=== PATIENT | female | born 1960 | race Caucasian/White ===

== ENCOUNTER 2018-02-13 11:01 | Inpatient (IN) | payer MEDICAID ==
[2018-02-13] MEDS ORDERED: Polyethylene Glycol 3350 Powder 17 GM Packet PO PRN (16:57)
[2018-02-13] MEDS ORDERED: oxyCODONE 5 MG Tab PO PRN (16:57)
[2018-02-13] MEDS ORDERED: Sodium Chloride 0.9% 10 ML Syringe FLUSH PRN (16:57)
[2018-02-13] MEDS ORDERED: Ondansetron 4 MG/2 ML SDV IV PRN (16:57)
[2018-02-13] MEDS ORDERED: Potassium Chloride 20 MEQ Tab.ER PO ONE (17:30)
[2018-02-13] MEDS ORDERED: Furosemide 20 MG/2 ML VIAL IVPUSH ONE (17:30)
[2018-02-13] MEDS ORDERED: Furosemide 40 MG/4 ML VIAL IVPUSH ONE (17:30)
[2018-02-13] MEDS ORDERED: Lactated Ringers 1,000 ML IV SCH (18:30)
--- NOTE | 2018-02-13 18:30 | PCM.HP ---
H&P History of Present Illness - General Date of Service: 02/13/18 Admit Problem/Dx: Source of Information: Patient, Old Records, Provider, RN Notes Reviewed History Limitations: Reports: No Limitations - History of Present Illness Initial Comments - Free Text/Narative: This patient is a 57-year-old woman who is admitted to observation status as a direct admission from the walk-in clinic, with symptoms of progressive weakness , increased abdominal girth, and poor urine output. She has not felt well over the past month, becoming progressively more weak and noticing increase in her abdominal girth. Over the last few days his had very poor urine output and went into the walk-in clinic earlier today for evaluation. Creatinine was noted to be mildly elevated from baseline and bladder scan showed a large amount of urine within the bladder. Douglas catheter was placed but only a small amount of urine returned, this was very dark in color. They were concerned that the catheter had plugged and it was then removed. She has had an elevated bilirubin level today at 4.4 which is mildly increased over the past few days. There is a past history of fatty liver and she reports daily alcohol use for many years. Reports that she is not consumed alcohol now over the past month. Ultrasound was done previously which showed evidence of fatty liver, question of possible thickening of the gallbladder wall. CT scan was obtained and showed evidence of fatty liver with no masses within the liver or evidence of obstruction. Laboratory studies have been obtained to evaluate her liver disease and include negative ceruloplasmin normal ferritin and iron levels in a.m. 1.07 negative hepatitis B and C. Most recent INR was mildly elevated at 1.3 and her albumin is in the range of 2.4. She denies recent fevers chills or sweats and has not had significant abdominal tenderness. - Related Data Allergies/Adverse Reactions: Allergies Allergy/AdvReac Type Severity Reaction Status Date / Time No Known Allergies Allergy Verified 02/04/18 09:38 Home Medications: Home Meds Polyethylene Glycol 3350 [Miralax] 17 gm PO DAILY PRN 02/13/18 [History] Spironolactone [Aldactone] 25 mg PO BID 02/13/18 [History] glipiZIDE [Glucotrol] 5 mg PO BID 02/13/18 [History] Past Medical History - Past Health History Medical/Surgical History: Denies Medical/Surgical History HEENT History: Reports: None Cardiovascular History: Reports: High Cholesterol, Hypertension Respiratory History: Reports: COPD, Sleep Apnea, SOB Gastrointestinal History: Reports: Chronic Constipation, Chronic Diarrhea Genitourinary History: Reports: Retention, Urinary, Urinary Incontinence Psychiatric History: Reports: Addiction, Anxiety, Depression, Panic Attack Endocrine/Metabolic History: Reports: Diabetes, Type II - Infectious Disease History Infectious Disease History: Reports: Chicken Pox, Mumps - Past Surgical History Head Surgeries/Procedures: Reports: None HEENT Surgical History: Reports: None Cardiovascular Surgical History: Reports: None GI Surgical History: Reports: None Female Surgical History: Reports: Section Endocrine Surgical History: Reports: None Oncologic Surgical History: Reports: None Social & Family History - Family History Family Medical History: Unobtainable - Tobacco Use Smoking Status *Q: Current Every Day Smoker Years of Tobacco use: 35 Packs/Tins Daily: 1 Used Tobacco, but Quit: No Second Hand Smoke Exposure: No - Caffeine Use Caffeine Use: Reports: None - Recreational Drug Use Recreational Drug Use: No H&P Review of Systems - Review of Systems: Review Of Systems: See Below General: Reports: Weakness, Decreased Appetite. Denies: Fever, Chills, Diaphoresis HEENT: Reports: No Symptoms Pulmonary: Reports: No Symptoms Cardiovascular: Reports: No Symptoms Gastrointestinal: Reports: Decreased Appetite, Distension. Denies: Abdominal Pain, Diarrhea, Difficulty Swallowing, Hematemesis, Hematochezia, Melena, Nausea , Vomiting Genitourinary: Reports: Other (Very low urine output) Musculoskeletal: Reports: No Symptoms Skin: Reports: No Symptoms Psychiatric: Reports: No Symptoms Neurological: Reports: No Symptoms Hematologic/Lymphatic: Reports: No Symptoms Immunologic: Reports: No Symptoms Exam - Exam Exam: See Below - Vital Signs Vital Signs: Last Vital Signs Temp 97.8 F 02/13/18 16:17 Pulse 89 02/13/18 16:17 Resp 16 02/13/18 16:17 BP 109/56 L 02/13/18 16:17 Pulse Ox 99 02/13/18 16:17 Weight: 233 lb 12.8 oz - Exam Quality Assessment: Urinary Catheter, DVT Prophylaxis HEENT: Conjunctiva Clear, Hearing Intact, Normal Nasal Septum, Posterior Pharynx Clear, Pupils Equal. No: Mucosa Moist & Mutual, Scleral Icterus Neck: Supple, Trachea Midline, +2 Carotid Pulse wo Bruit Lungs: Clear to Auscultation, Normal Respiratory Effort Cardiovascular: Regular Rate, Regular Rhythm, Normal S1, Normal S2 GI/Abdominal Exam: Soft, Non-Tender, No Organomegaly, No Distention Back Exam: Normal Inspection, Full Range of Motion, Vertebral Tenderness Extremities: Non-Tender, Pedal Edema Skin: Warm, Dry, Intact Neurological: Cranial Nerves Intact, Strength Equal Bilateral, Normal Speech, Normal Tone, Sensation Intact. No: Focal Deficit Neuro Extensive - Mental Status: Alert, Oriented x3, Normal Mood/Affect, Normal Cognition, Memory Intact *Q Meaningful Use (ADM) - VTE Risk Assess *Q Each Risk Factor Represents 1 Point: Age 41 - 59 years, Swollen Legs, Current, Obesity ( BMI > 25 kg/m2) Total Score 1 Point Risk Factors: 3 Each Risk Factor Represents 2 Points: None Total Score 2 Point Risk Factors: 0 Each Risk Factor Represents 3 Points: None Total Score 3 Point Risk Factors: 0 Each Risk Factor Represents 5 Points: None Total Score 5 Point Risk Factors: 0 Venous Thromboembolism Risk Factor Score *Q: 3 Problem List Initiated/Reviewed/Updated: Yes Orders Last 24hrs: Active Orders 24 hr Category Date Time Status Patient Status [ADT] Routine ADT 02/13/18 16:57 Active Ambulate [RC] QID Care 02/13/18 16:57 Active Height and Weight [RC] DAILY Care 02/13/18 16:57 Active Insert Urinary Catheter [OM.PC] Q24H Care 02/13/18 17:15 Ordered Intake and Output [RC] QSHIFT Care 02/13/18 16:57 Active Notify Provider Vital Signs [RC] ASDIRECTED Care 02/13/18 16:57 Active Oxygen Therapy [RC] PRN Care 02/13/18 16:57 Active Up With Assistance [RC] ASDIRECTED Care 02/13/18 16:57 Active Up to Chair [RC] QID Care 02/13/18 16:57 Active Urinary Catheter Assessment [RC] ASDIRECTED Care 02/13/18 17:03 Active VTE/DVT Education [RC] Per Unit Routine Care 02/13/18 16:57 Active Vital Signs [RC] Q4H Care 02/13/18 16:57 Active 2 Gram Sodium Diet [DIET] Diet 02/13/18 Dinner Active ACTIN (SMOOTH MUSCLE) ANTIBODY Routine Lab 02/14/18 05:00 Ordered CBC WITH AUTO DIFF [HEME] AM Lab 02/14/18 05:11 Ordered COMPREHENSIVE METABOLIC PN,CMP [CHEM] AM Lab 02/14/18 05:11 Ordered CULTURE URINE [RM] Stat Lab 02/13/18 16:57 Ordered INR,PT,PROTHROMBIN TIME [COAG] AM Lab 02/14/18 05:11 Ordered MAGNESIUM [CHEM] AM Lab 02/14/18 05:11 Ordered UA W/MICROSCOPIC [URIN] Stat Lab 02/13/18 16:57 Ordered Docusate Sodium/Sennosides [Senna Plus] Med 02/13/18 16:57 Active 1 tab PO BID PRN Lactated Ringers @ 125 MLS/HR(1000ml) Med 02/14/18 00:30 Ordered Lactated Ringers [Ringers, Lactated] 1,000 ml IV ASDIRECTED Lactated Ringers [Ringers, Lactated] 1,000 ml Med 02/13/18 18:30 Ordered IV ASDIRECTED Magnesium Hydroxide [Milk of Magnesia] Med 02/13/18 16:57 Active 30 ml PO Q12H PRN Ondansetron [Zofran] Med 02/13/18 16:57 Active 4 mg IV Q4H PRN Polyethylene Glycol 3350 [MiraLAX] Med 02/13/18 16:57 Active 17 gm PO DAILY PRN Sodium Chloride 0.9% [Saline Flush] Med 02/13/18 16:57 Active 10 ml FLUSH ASDIRECTED PRN Spironolactone [Aldactone] Med 02/13/18 21:00 Active 25 mg PO TID oxyCODONE Med 02/13/18 16:57 Active 5 mg PO Q4H PRN Saline Lock Insert [OM.PC] Routine Oth 02/13/18 16:57 Ordered Resuscitation Status Routine Resus Stat 02/13/18 16:57 Ordered Medication Orders Lactated Ringer's (Ringers, Lactated) 1,000 mls @ 250 mls/hr IV ASDIRECTED JOSEPH Stop: 02/14/18 00:31 Lactated Ringer's (Ringers, Lactated) 1,000 mls @ 125 mls/hr IV ASDIRECTED JOSEPH Magnesium Hydroxide (Milk Of Magnesia) 30 ml PO Q12H PRN PRN Reason: Constipation Ondansetron HCl (Zofran) 4 mg IV Q4H PRN PRN Reason: Nausea/Vomiting Oxycodone HCl (Oxycodone) 5 mg PO Q4H PRN PRN Reason: Pain (moderate 4-6) Polyethylene Glycol (Miralax) 17 gm PO DAILY PRN PRN Reason: Constipation Senna/Docusate Sodium (Senna Plus) 1 tab PO BID PRN PRN Reason: Constipation Sodium Chloride (Saline Flush) 10 ml FLUSH ASDIRECTED PRN PRN Reason: Keep Vein Open Spironolactone (Aldactone) 25 mg PO TID JOSEPH Assessment/Plan Comment:: ASSESSMENT AND PLAN HEPATIC CIRRHOSIS-likely secondary to fatty liver and chronic alcohol use, associated with significant ascites. Outpatient evaluation is been negative for any evidence of obstruction and other studies to evaluate for causes of cirrhosis have been negative. -Anti-smooth muscle antibody -Consider paracentesis for further evaluation and treatment of large volume ascites -2 g sodium diet -Patient encouraged to avoid further alcohol use ACUTE KIDNEY INJURY-she may have a component of hepatorenal syndrome, poor urine output over the past few days. Bladder scan done at the clinic suggested large volume bladder with urinary retention. I think this was likely secondary to her ascitic fluid, Douglas catheter is been placed here with negligible output. -Reassess kidney function in a.m. -Closely monitor urine output -IV fluids for intravascular volume replacement MAINTENANCE ISSUES -DVT prophylaxis; Lovenox 40 mg subcutaneous daily -GI prophylaxis; not indicated -Douglas catheter; required to closely monitor urine output -Nutrition; 2 g sodium diet, consistent carb diet -Nicotine dependence; 14 mg nicotinic patch CODE STATUS-FULL CODE ADMISSION STATUS-this patient will be admitted to observation status, expect no more than a one night hospital stay for evaluation and management of problems as outlined above. DISPOSITION-anticipate discharge to home after the hospital stay. PRIMARY CARE PROVIDER-Dr. Tenorio
[2018-02-13] MEDS ORDERED: Nicotine Polacrilex 2 MG Gum CHEW PRN (18:37)
[2018-02-13] MEDS ORDERED: Glucose Gel 15 GM in 37.5 GM Tube PO PRN (18:37)
[2018-02-13] MEDS ORDERED: 50% Dextrose in Water 50 ML Syringe IV PRN (18:37)
[2018-02-13] MEDS: Nicotine 14 MG/24 Hr Patch TRDERM SCH (20:21)
[2018-02-13] MEDS: SPIRONOLACTONE 25 MG PO SCH (21:54)
[2018-02-13] MEDS: Melatonin 3 MG Tab PO SCH (21:54)
[2018-02-13] MEDS: Insulin Aspart 100 Units/ML 3 ML Pen SUBCUT SCH (21:55)
[2018-02-13] MEDS: Acetaminophen/HYDROcodone 325-5 MG Tab PO PRN (22:31)
[2018-02-14] MEDS: Lactated Ringers 1,000 ML IV SCH ×2 (01:49→08:49)
[2018-02-14] MEDS ORDERED: Lactated Ringers 500 ML IV SCH (02:30)
[2018-02-14] MEDS ORDERED: Potassium Chloride 100 ML ONE (05:57)
[2018-02-14] MEDS: Potassium Chloride 20 MEQ, Lidocaine 1% 2 ML in Sodium Chloride 0.9% 100 ML IV SCH ×2 (06:05→08:47)
--- NOTE | 2018-02-14 07:51 | PCM.SN ---
- Free Text/Narrative Note: time 02:30 am; call from [address] [place] [address]; concerns of low blood pressure and low urine output also request change of pain medication; oxycodone causes itchiness, would like hydrocodone instead. O: B/P 92/46 P71 , urine output <100ml since 2099 A: hypotension, low urine output, change pain medication P:-give 500ml fluid bolus now and recheck blood pressures -monitor urine output closely -D/C oxycodone -order Hydrocodone 5-325mg take 1-2 tab every 4 hr prn pain
[2018-02-14] MEDS: Insulin Aspart 100 Units/ML 3 ML Pen SUBCUT SCH ×4 (08:15→21:42)
[2018-02-14] MEDS: SPIRONOLACTONE 25 MG PO SCH ×3 (08:17→21:43)
[2018-02-14] MEDS: Nicotine 14 MG/24 Hr Patch TRDERM SCH (08:58)
[2018-02-14] MEDS: Acetaminophen/HYDROcodone 325-5 MG Tab PO PRN ×3 (08:58→21:55)
[2018-02-14] MEDS: Enoxaparin 40 MG/0.4 ML Syringe SUBCUT SCH (08:58)
[2018-02-14] MEDS: Magnesium Hydroxide 400 MG/5 ML Susp 30 ML Cup PO PRN (08:58)
[2018-02-14] MEDS: Magnesium Oxide 400 MG Tab PO SCH ×2 (08:59→21:43)
[2018-02-14] MEDS: Albumin 25% 50 ML IV SCH ×5 (11:13→22:00)
[2018-02-14] MEDS ORDERED: Lactated Ringers 1,000 ML IV SCH (12:00)
--- NOTE | 2018-02-14 12:11 | PCM.PN ---
- General Info Date of Service: 02/14/18 Subjective Update: This patient has remained afebrile and hemodynamically stable since admission yesterday afternoon. Urine output has been marginal despite IV fluids, albumin level this morning very low at 1.5. Renal function only slightly worse than on admission, she reports feeling very weak and tired. Urinalysis showed evidence of possible underlying infection and she has been started on IV antibiotic therapy with Rocephin, urine culture is pending. - Review of Systems General: Reports: Weakness, Fatigue. Denies: Fever, Chills Pulmonary: Reports: No Symptoms Cardiovascular: Reports: No Symptoms Gastrointestinal: Reports: Other (Abdominal distention). Denies: Abdominal Pain , Diarrhea, Difficulty Swallowing, Nausea, Vomiting Genitourinary: Reports: No Symptoms - Patient Data Vitals - Most Recent: Last Vital Signs Temp 96.6 F 02/14/18 07:47 Pulse 76 02/14/18 07:47 Resp 26 H 02/14/18 07:47 BP 117/71 02/14/18 07:47 Pulse Ox 96 02/14/18 07:47 Weight - Most Recent: 237 lb 12.79 oz I&O - Last 24 Hours: Intake & Output 02/13/18 02/14/18 02/14/18 22:59 06:59 14:59 Intake Total 2182 Output Total 50 150 Balance -50 2032 Lab Results Last 24 Hours: Laboratory Results - last 24 hr 02/13/18 02/14/18 02/14/18 Range/Units 20:25 04:45 04:45 WBC 12.5 H (4.5-11.0) K/uL RBC 3.70 (3.30-5.50) M/uL Hgb 12.5 (12.0-15.0) g/dL Hct 37.5 (36.0-48.0) % MCV 101 H (80-98) fL MCH 34 H (27-31) pg MCHC 33 (32-36) % Plt Count 199 (150-400) K/uL Neut % (Auto) 66 (36-66) % Lymph % (Auto) 21 L (24-44) % Preston % (Auto) 9 H (2-6) % Eos % (Auto) 3 (2-4) % Baso % (Auto) 1 (0-1) % PT 14.2 H (9.5-12.0) sec INR 1.31 H (0.80-1.20) Sodium (140-148) mmol/L Potassium (3.6-5.2) mmol/L Chloride (100-108) mmol/L Carbon Dioxide (21-32) mmol/L Anion Gap (5.0-14.0) mmol/L BUN (7-18) mg/dL Creatinine (0.6-1.0) mg/dL Est Cr Clr Drug Dosing mL/min Estimated GFR (MDRD) (>60) Glucose (74-106) mg/dL Calcium (8.5-10.1) mg/dL Magnesium (1.8-2.4) mg/dL Total Bilirubin (0.2-1.0) mg/dL AST (15-37) U/L ALT (12-78) U/L Alkaline Phosphatase (46-116) U/L Total Protein (6.4-8.2) g/dL Albumin (3.4-5.0) g/dL Globulin (2.3-3.5) g/dL Albumin/Globulin Ratio (1.2-2.2) Urine Color [place] Urine Appearance Cloudy Urine pH 5.0 (4.5-8.0) Ur Specific [place] 1.020 (1.008-1.030) Urine Protein 30 H (NEGATIVE) mg/dL Urine Glucose (UA) Normal (NEGATIVE) mg/dL Urine Ketones Negative (NEGATIVE) mg/dL Urine Occult Blood Large (NEGATIVE) Urine Nitrite Negative (NEGATIVE) Urine Bilirubin Moderate (NEGATIVE) Urine Urobilinogen 8 (NORMAL) mg/dL Ur Leukocyte Esterase Moderate (NEGATIVE) Urine RBC 30-40 H (0-5) Urine WBC 20-30 H (0-5) Ur Epithelial Cells Moderate Amorphous Sediment Few Urine Bacteria Moderate Urine Mucus Many Urine Other 02/14/18 Range/Units 04:45 WBC (4.5-11.0) K/uL RBC (3.30-5.50) M/uL Hgb (12.0-15.0) g/dL Hct (36.0-48.0) % MCV (80-98) fL MCH (27-31) pg MCHC (32-36) % Plt Count (150-400) K/uL Neut % (Auto) (36-66) % Lymph % (Auto) (24-44) % Preston % (Auto) (2-6) % Eos % (Auto) (2-4) % Baso % (Auto) (0-1) % PT (9.5-12.0) sec INR (0.80-1.20) Sodium 138 L (140-148) mmol/L Potassium 2.6 L* (3.6-5.2) mmol/L Chloride 99 L (100-108) mmol/L Carbon Dioxide 34 H (21-32) mmol/L Anion Gap 7.6 (5.0-14.0) mmol/L BUN 20 H (7-18) mg/dL Creatinine 1.2 H (0.6-1.0) mg/dL Est Cr Clr Drug Dosing 44.13 mL/min Estimated GFR (MDRD) 46 L (>60) Glucose 92 (74-106) mg/dL Calcium 7.4 L (8.5-10.1) mg/dL Magnesium 1.7 L (1.8-2.4) mg/dL Total Bilirubin 2.0 H (0.2-1.0) mg/dL AST 62 H (15-37) U/L ALT 17 (12-78) U/L Alkaline Phosphatase 169 H (46-116) U/L Total Protein 5.3 L (6.4-8.2) g/dL Albumin 1.5 L (3.4-5.0) g/dL Globulin 3.8 H (2.3-3.5) g/dL Albumin/Globulin Ratio 0.4 L (1.2-2.2) Urine Color Urine Appearance Urine pH (4.5-8.0) Ur Specific [place] (1.008-1.030) Urine Protein (NEGATIVE) mg/dL Urine Glucose (UA) (NEGATIVE) mg/dL Urine Ketones (NEGATIVE) mg/dL Urine Occult Blood (NEGATIVE) Urine Nitrite (NEGATIVE) Urine Bilirubin (NEGATIVE) Urine Urobilinogen (NORMAL) mg/dL Ur Leukocyte Esterase (NEGATIVE) Urine RBC (0-5) Urine WBC (0-5) Ur Epithelial Cells Amorphous Sediment Urine Bacteria Urine Mucus Urine Other Med Orders - Current: Current Medications Hydrocodone Bitart/Acetaminophen ([place] 325-5 Mg) 1 - 2 tab PO Q4H PRN PRN Reason: Pain Last Admin: 02/14/18 08:58 Dose: 1 tab Dextrose (Glutose 15) 15 gm PO ONETIME PRN PRN Reason: Hypoglycemia Dextrose/Water (Dextrose 50% In Water) 50 ml IV ONETIME PRN PRN Reason: Hypoglycemia Enoxaparin Sodium (Lovenox) 40 mg SUBCUT DAILY [facility] Last Admin: 02/14/18 08:58 Dose: 40 mg Ceftriaxone Sodium 1 gm/ (Sodium Chloride) 50 mls @ 100 mls/hr IV Q24H [facility] Albumin Human (Flexbumin 25%) 50 mls @ 25 mls/hr IV Q6H [facility] Last Admin: 02/14/18 11:13 Dose: 25 mls/hr Albumin Human (Flexbumin 25%) 50 mls @ 25 mls/hr IV Q6H [facility] Lactated Ringer's (Ringers, Lactated) 1,000 mls @ 50 mls/hr IV ASDIRECTED [facility]1983 Insulin Aspart (Novolog) 0 unit SUBCUT QIDACANDBED [facility], [facility]; Protocol Last Admin: 02/14/18 11:59 Dose: Not Given Magnesium Hydroxide (Milk Of Magnesia) 30 ml PO Q12H PRN PRN Reason: Constipation Last Admin: 02/14/18 08:58 Dose: 30 ml Magnesium Oxide (Magnesium Oxide) 400 mg PO BID [facility] Last Admin: 02/14/18 08:59 Dose: 400 mg Melatonin (Melatonin) 9 mg PO BEDTIME [facility] Last Admin: 02/13/18 21:54 Dose: 9 mg Nicotine (Habitrol) 14 mg TRDERM DAILY [facility] Last Admin: 02/14/18 08:58 Dose: Not Given Nicotine Polacrilex (Nicorelief) 2 mg CHEW Q1H PRN PRN Reason: Other Ondansetron HCl (Zofran) 4 mg IV Q4H PRN PRN Reason: Nausea/Vomiting Last Admin: 02/14/18 09:48 Dose: 4 mg Polyethylene Glycol (Miralax) 17 gm PO DAILY PRN PRN Reason: Constipation Potassium Chloride (Klor-Con M20) 40 meq PO ONETIME ONE Stop: 02/14/18 11:58 Potassium Chloride (Klor-Con M20) 40 meq PO ONETIME ONE Stop: 02/14/18 17:01 Senna/Docusate Sodium (Senna Plus) 1 tab PO BID PRN PRN Reason: Constipation Last Admin: 02/13/18 21:54 Dose: 1 tab Sodium Chloride (Saline Flush) 10 ml FLUSH ASDIRECTED PRN PRN Reason: Keep Vein Open Spironolactone (Aldactone) 25 mg PO TID [facility] Last Admin: 02/14/18 08:17 Dose: 25 mg Discontinued Medications Furosemide (Lasix) 20 mg IVPUSH NOW ONE Stop: 02/13/18 17:31 Last Admin: 02/13/18 18:36 Dose: Not Given Furosemide (Lasix) 20 mg IVPUSH NOW ONE Stop: 02/13/18 17:31 Last Admin: 02/13/18 18:16 Dose: 20 mg Lactated Ringer's (Ringers, Lactated) 1,000 mls @ 250 mls/hr IV ASDIRECTED [facility] Stop: 02/14/18 00:31 Last Admin: 02/13/18 20:05 Dose: 175 mls/hr Lactated Ringer's (Ringers, Lactated) 1,000 mls @ 125 mls/hr IV ASDIRECTED [facility] Last Admin: 02/14/18 08:49 Dose: 125 mls/hr Lactated Ringer's (Ringers, Lactated) 500 mls @ 500 mls/hr IV .BOLUS [facility] Last Admin: 02/14/18 02:45 Dose: 200 mls/hr Potassium Chloride 20 meq/Lidocaine HCl 2 ml/ Sodium Chloride 112 mls @ 50 mls/ hr IV Q2H [facility] Stop: 02/14/18 09:59 Last Admin: 02/14/18 08:47 Dose: 50 mls/hr Potassium Chloride (Kcl 20 Meq In Water 100 Ml) Confirm Administered Dose 100 mls @ as directed .ROUTE .STK-MED ONE Stop: 02/14/18 05:58 Last Admin: 02/14/18 06:04 Dose: Not Given Oxycodone HCl (Oxycodone) 5 mg PO Q4H PRN PRN Reason: Pain (moderate 4-6) Potassium Chloride (Klor-Con M20) 40 meq PO ONETIME ONE Stop: 02/13/18 17:31 Last Admin: 02/13/18 18:16 Dose: 40 meq - Exam Quality Assessment: Urine Catheter, DVT Prophylaxis General: Alert, Oriented, Cooperative, Mild Distress Lungs: Clear to Auscultation, Normal Respiratory Effort Cardiovascular: Regular Rate, Regular Rhythm, No Murmurs GI/Abdominal Exam: Soft, Non-Tender, No Organomegaly, Distended. No: Guarding, Rigid, Rebound Extremities: Non-Tender, Pedal Edema Skin: Warm, Dry, Intact - Problem List Review Problem List Initiated/Reviewed/Updated: Yes - My Orders Last 24 Hours: My Active Orders 02/13/18 16:57 Ambulate [RC] QID Height and Weight [RC] DAILY Intake and Output [RC] QSHIFT Notify Provider Vital Signs [RC] ASDIRECTED Oxygen Therapy [RC] PRN Up With Assistance [RC] ASDIRECTED Up to Chair [RC] QID VTE/DVT Education [RC] Per Unit Routine Vital Signs [RC] Q4H Docusate Sodium/Sennosides [Senna Plus] 1 tab PO BID PRN Magnesium Hydroxide [Milk of Magnesia] 30 ml PO Q12H PRN Ondansetron [Zofran] 4 mg IV Q4H PRN Polyethylene Glycol 3350 [MiraLAX] 17 gm PO DAILY PRN Sodium Chloride 0.9% [Saline Flush] 10 ml FLUSH ASDIRECTED PRN Saline Lock Insert [OM.PC] Routine Resuscitation Status Routine 02/13/18 17:03 Urinary Catheter Assessment [RC] Q12H 02/13/18 17:15 Insert Urinary Catheter [OM.PC] Q24H 02/13/18 18:37 Blood Glucose Check, Bedside [RC] QIDACANDBED Communication Order [RC] STAT Diabetes Education [RC] Click to Edit Notify Provider [RC] PRN Dextrose 50% in Water 50 ml IV ONETIME PRN Dextrose [Glutose 15] 15 gm PO ONETIME PRN Nicotine Polacrilex [Nicorelief] 2 mg CHEW Q1H PRN 02/13/18 18:45 Nicotine [Habitrol] 14 mg TRDERM DAILY 02/13/18 20:00 Insulin Aspart [NovoLOG] See Protocol SUBCUT QIDACANDBED 02/13/18 20:25 CULTURE URINE [RM] Stat UA W/MICROSCOPIC [URIN] Stat 02/13/18 21:00 Spironolactone [Aldactone] 25 mg PO TID 02/13/18 Dinner 2 Gram Sodium Diet [DIET] 02/14/18 04:45 ACTIN (SMOOTH MUSCLE) ANTIBODY Routine 02/14/18 08:30 Blood Glucose Check, Bedside [RC] ONETIME 02/14/18 09:00 Enoxaparin [Lovenox] 40 mg SUBCUT DAILY cefTRIAXone [Rocephin] 1 gm Sodium Chloride 0.9% [Normal Saline] 50 ml IV Q24H 02/14/18 11:00 US Guidance Paracentesis NC [US] Stat Albumin 25% [Flexbumin 25%] 50 ml IV Q6H 02/14/18 11:01 Patient Status [ADT] Routine Consult to Physician [CONS] Routine 02/14/18 11:05 Notify Provider Consults [RC] ASDIRECTED 02/14/18 11:57 Potassium Chloride [Klor-Con M20] 40 meq PO ONETIME ONE 02/14/18 12:00 Lactated Ringers [Ringers, Lactated] 1,000 ml IV ASDIRECTED 02/14/18 13:00 Albumin 25% [Flexbumin 25%] 50 ml IV Q6H 02/14/18 16:30 GLUCOSE POC LAB TO COLLECT [POC] QIDACANDBED 02/14/18 17:00 Potassium Chloride [Klor-Con M20] 40 meq PO ONETIME ONE 02/14/18 21:00 GLUCOSE POC LAB TO COLLECT [POC] QIDACANDBED 02/15/18 05:00 CBC WITH AUTO DIFF [HEME] Timed COMPREHENSIVE METABOLIC PN,CMP [CHEM] Timed 02/15/18 07:30 GLUCOSE POC LAB TO COLLECT [POC] QIDACANDBED 02/15/18 11:30 GLUCOSE POC LAB TO COLLECT [POC] QIDACANDBED 02/15/18 16:30 GLUCOSE POC LAB TO COLLECT [POC] QIDACANDBED 02/15/18 21:00 GLUCOSE POC LAB TO COLLECT [POC] QIDACANDBED 02/16/18 07:30 GLUCOSE POC LAB TO COLLECT [POC] QIDACANDBED 02/16/18 11:30 GLUCOSE POC LAB TO COLLECT [POC] QIDACANDBED 02/16/18 16:30 GLUCOSE POC LAB TO COLLECT [POC] QIDACANDBED 02/16/18 21:00 GLUCOSE POC LAB TO COLLECT [POC] QIDACANDBED 02/17/18 07:30 GLUCOSE POC LAB TO COLLECT [POC] QIDACANDBED 02/17/18 11:30 GLUCOSE POC LAB TO COLLECT [POC] QIDACANDBED 02/17/18 16:30 GLUCOSE POC LAB TO COLLECT [POC] QIDACANDBED 02/17/18 21:00 GLUCOSE POC LAB TO COLLECT [POC] QIDACANDBED 02/18/18 07:30 GLUCOSE POC LAB TO COLLECT [POC] QIDACANDBED 02/18/18 11:30 GLUCOSE POC LAB TO COLLECT [POC] QIDACANDBED 02/18/18 16:30 GLUCOSE POC LAB TO COLLECT [POC] QIDACANDBED - Plan Plan:: ASSESSMENT AND PLAN HEPATIC CIRRHOSIS-likely secondary to fatty liver and chronic alcohol use, associated with significant ascites. Outpatient evaluation is been negative for any evidence of obstruction and other studies to evaluate for causes of cirrhosis have been negative. -Anti-smooth muscle antibody -Consult Dr. Espinoza for paracentesis -Albumin IV 4 times daily -2 g sodium diet -Patient encouraged to avoid further alcohol use ACUTE KIDNEY INJURY-probable component of hepatorenal syndrome, poor urine output over the past few days. Bladder scan done at the clinic suggested large volume bladder with urinary retention. I think this was likely secondary to her ascitic fluid, Douglas catheter has been placed here with negligible output. -Reassess kidney function in a.m. -Closely monitor urine output -Decrease IV rate to 50 mL per hour PROBABLE URINARY TRACT INFECTION -Urine culture pending -Rocephin 1 g IV every 24 hours TYPE 2 DIABETES MELLITUS -Hold glipizide -4 times a day glucometers -Low-dose sliding scale NovoLog MAINTENANCE ISSUES -DVT prophylaxis; Lovenox 40 mg subcutaneous daily -GI prophylaxis; not indicated -Douglas catheter; required to closely monitor urine output -Nutrition; 2 g sodium diet, consistent carb diet -Nicotine dependence; 14 mg nicotinic patch CODE STATUS-FULL CODE ADMISSION STATUS-this patient will be admitted to observation status, expect no more than a one night hospital stay for evaluation and management of problems as outlined above. DISPOSITION-anticipate discharge to home after the hospital stay. PRIMARY CARE PROVIDER-Dr. Tenorio
[2018-02-14] MEDS ORDERED: Potassium Chloride 20 MEQ Tab.ER PO ONE ×2 (13:00→17:00)
[2018-02-14] MEDS: cefTRIAXone 1 GM in Sodium Chloride 0.9% 50 ML IV SCH (13:30)
[2018-02-14] MEDS ORDERED: Bacitracin Oint 1 GM U/D Packet TOP ONE (18:28)
[2018-02-14] MEDS: Melatonin 3 MG Tab PO SCH (21:43)
[2018-02-14] MEDS ORDERED: Bacitracin Oint 1 GM U/D Packet ONE (21:48)
[2018-02-15] MEDS: Albumin 25% 50 ML IV SCH ×5 (00:34→18:38)
[2018-02-15] MEDS: diphenhydrAMINE 25 MG Cap PO PRN ×2 (05:45→09:37)
[2018-02-15] MEDS: Insulin Aspart 100 Units/ML 3 ML Pen SUBCUT SCH ×4 (07:29→21:34)
--- NOTE | 2018-02-15 08:12 | PCM.SN ---
- Free Text/Narrative Note: 05:30 am call from [address] [place] [address], o: request for benadryl for pruritus a: pruritus p; order benadryl 25mg to 50 mg po every 4 hr prn itch.
--- NOTE | 2018-02-15 08:28 | OR ---
DATE OF PROCEDURE: 02/14/2018 PROCEDURE PERFORMED: Paracentesis. FINDINGS: 1 L of straw-colored fluid aspirated for cytology. COMPLICATIONS: None. METER SUPERVISOR: None. ANESTHESIA: MAC. INDICATIONS: A 57-year-old female with large amount of ascites fluid. At the request of the Hospitalist Service, 1 L straw-colored fluid was aspirated for cytological/culture purposes. RISKS: Risks, benefits, alternatives, and limitations including, but not limited to infection, bleeding, and perforation were explained to the patient and wished to proceed. PROCEDURE IN DETAIL: The patient was placed in supine position. Previously, area was marked with an ultrasound. The calos was created in the skin after anesthetizing with lidocaine. The sheath was introduced and then the needle was withdrawn. 1 L of fluid was returned for culture purposes. This was then closed with a [id number] stitch. Dressings were applied. The patient tolerated the procedure well. Luis Espinoza MD /[id number]
[2018-02-15] MEDS ORDERED: Potassium Chloride 20 MEQ in Premix Bag 1 BAG IV ONE (08:30)
[2018-02-15] MEDS ORDERED: Potassium Chloride 20 MEQ Tab.ER PO ONE (09:00)
[2018-02-15] MEDS: Enoxaparin 40 MG/0.4 ML Syringe SUBCUT SCH (09:13)
[2018-02-15] MEDS: Magnesium Oxide 400 MG Tab PO SCH ×2 (09:13→20:50)
[2018-02-15] MEDS: SPIRONOLACTONE 25 MG PO SCH (09:14)
[2018-02-15] MEDS: Nicotine 14 MG/24 Hr Patch TRDERM SCH (09:14)
[2018-02-15] MEDS: cefTRIAXone 1 GM in Sodium Chloride 0.9% 50 ML IV SCH (09:37)
[2018-02-15] MEDS ORDERED: Potassium Chloride 20 MEQ, Lidocaine 1% 2 ML in Sodium Chloride 0.9% 100 ML IV ONE (10:00)
[2018-02-15] MEDS ORDERED: Sodium Chloride 0.9% 1,000 ML IV SCH (11:15)
--- NOTE | 2018-02-15 13:21 | PCM.PN ---
- General Info Date of Service: 02/15/18 Subjective Update: This patient has remained stable over the past 24 hours although urine output has remained marginal at best. Energy level seems to be improved and her appetite is picking up as well, this morning is sitting up in the chair more conversant and interactive. Denies significant pain, evaluation from ascitic fluid showing no evidence of obvious infection. Gram-positive cocci noted in the urine but final ID and sensitivities are pending white blood cell count has improved and she has remained afebrile. Functional Status: Reports: Pain Controlled, Tolerating Diet - Review of Systems General: Reports: Weakness. Denies: Fever, Chills Pulmonary: Reports: No Symptoms Cardiovascular: Reports: No Symptoms Gastrointestinal: Reports: No Symptoms - Patient Data Vitals - Most Recent: Last Vital Signs Temp 97.0 F 02/15/18 07:44 Pulse 79 02/15/18 11:00 Resp 18 02/15/18 11:00 BP 103/57 L 02/15/18 11:00 Pulse Ox 91 L 02/15/18 11:00 Weight - Most Recent: 237 lb 12.79 oz I&O - Last 24 Hours: Intake & Output 02/14/18 02/15/18 02/15/18 22:59 06:59 14:59 Intake Total 590 860 Output Total 1110 175 95 Balance -520 -175 765 Lab Results Last 24 Hours: Laboratory Results - last 24 hr 02/14/18 02/14/18 02/14/18 Range/Units 13:00 18:50 18:50 WBC (4.5-11.0) K/uL RBC (3.30-5.50) M/uL Hgb (12.0-15.0) g/dL Hct (36.0-48.0) % MCV (80-98) fL MCH (27-31) pg MCHC (32-36) % Plt Count (150-400) K/uL Neut % (Auto) (36-66) % Lymph % (Auto) (24-44) % [place] % (Auto) (2-6) % Eos % (Auto) (2-4) % Baso % (Auto) (0-1) % Sodium (140-148) mmol/L Potassium 3.2 L (3.6-5.2) mmol/L Chloride (100-108) mmol/L Carbon Dioxide (21-32) mmol/L Anion Gap (5.0-14.0) mmol/L BUN (7-18) mg/dL Creatinine (0.6-1.0) mg/dL Est Cr Clr Drug Dosing mL/min Estimated GFR (MDRD) (>60) Glucose (74-106) mg/dL Calcium (8.5-10.1) mg/dL Total Bilirubin (0.2-1.0) mg/dL AST (15-37) U/L ALT (12-78) U/L Alkaline Phosphatase (46-116) U/L Total Protein (6.4-8.2) g/dL Albumin (3.4-5.0) g/dL Globulin (2.3-3.5) g/dL Albumin/Globulin Ratio (1.2-2.2) Fluid Type Peritoneal fluid Peritoneal fluid Fluid pH Fluid WBC 20 /ul Fluid RBC 80 /ul Fluid Diff Comment Histocyte looking ce Fluid Mononuclear Cell 90 % Fl Polymorphonucl Cell 10 % Fluid Total Protein 1.7 g/dL Fluid Amylase 10 U/L Fluid Lipase 57 U/L 02/14/18 02/15/18 02/15/18 Range/Units 18:50 04:45 04:45 WBC 9.8 (4.5-11.0) K/uL RBC 3.57 (3.30-5.50) M/uL Hgb 12.0 (12.0-15.0) g/dL Hct 36.8 (36.0-48.0) % MCV 103 H (80-98) fL MCH 34 H (27-31) pg MCHC 33 (32-36) % Plt Count 192 (150-400) K/uL Neut % (Auto) 65 (36-66) % Lymph % (Auto) 22 L (24-44) % [place] % (Auto) 10 H (2-6) % Eos % (Auto) 3 (2-4) % Baso % (Auto) 1 (0-1) % Sodium 140 (140-148) mmol/L Potassium 3.3 L (3.6-5.2) mmol/L Chloride 101 (100-108) mmol/L Carbon Dioxide 34 H (21-32) mmol/L Anion Gap 8.3 (5.0-14.0) mmol/L BUN 20 H (7-18) mg/dL Creatinine 1.2 H (0.6-1.0) mg/dL Est Cr Clr Drug Dosing 44.45 mL/min Estimated GFR (MDRD) 46 L (>60) Glucose 163 H (74-106) mg/dL Calcium 7.9 L (8.5-10.1) mg/dL Total Bilirubin 2.0 H (0.2-1.0) mg/dL AST 47 H (15-37) U/L ALT 15 (12-78) U/L Alkaline Phosphatase 147 H (46-116) U/L Total Protein 5.8 L (6.4-8.2) g/dL Albumin 2.6 L (3.4-5.0) g/dL Globulin 3.2 (2.3-3.5) g/dL Albumin/Globulin Ratio 0.8 L (1.2-2.2) Fluid Type Peritoneal fluid Fluid pH 8 Fluid WBC /ul Fluid RBC /ul Fluid Diff Comment Fluid Mononuclear Cell % Fl Polymorphonucl Cell % Fluid Total Protein g/dL Fluid Amylase U/L Fluid Lipase U/L Daljit Results Last 24 Hours: Microbiology 02/13/18 20:25 Urine Culture - Preliminary Urine, Catheterized 02/14/18 18:50 Gram Stain - Final Paracentesis Fluid Med Orders - Current: Current Medications Hydrocodone Bitart/Acetaminophen (Range 325-5 Mg) 1 - 2 tab PO Q4H PRN PRN Reason: Pain Last Admin: 02/14/18 21:55 Dose: 2 tab Dextrose (Glutose 15) 15 gm PO ONETIME PRN PRN Reason: Hypoglycemia Dextrose/Water (Dextrose 50% In Water) 50 ml IV ONETIME PRN PRN Reason: Hypoglycemia Diphenhydramine HCl (Benadryl) 25 - 50 mg PO Q4H PRN PRN Reason: Itching Last Admin: 02/15/18 09:37 Dose: 50 mg Enoxaparin Sodium (Lovenox) 40 mg SUBCUT DAILY [facility] TO [facility] Last Admin: 02/15/18 09:13 Dose: 40 mg Ceftriaxone Sodium 1 gm/ (Sodium Chloride) 50 mls @ 100 mls/hr IV Q24H [facility] Last Admin: 02/15/18 09:37 Dose: 100 mls/hr Albumin Human (Flexbumin 25%) 50 mls @ 12.5 mls/hr IV Q6H [facility] Last Admin: 02/15/18 07:28 Dose: 25 mls/hr Insulin Aspart (Novolog) 0 unit SUBCUT QIDACANDBED [facility] TO [facility]; Protocol Last Admin: 02/15/18 07:29 Dose: Not Given Magnesium Hydroxide (Milk Of Magnesia) 30 ml PO Q12H PRN PRN Reason: Constipation Last Admin: 02/14/18 08:58 Dose: 30 ml Magnesium Oxide (Magnesium Oxide) 400 mg PO BID [facility] Last Admin: 02/15/18 09:13 Dose: 400 mg Melatonin (Melatonin) 9 mg PO BEDTIME [facility] Last Admin: 02/14/18 21:43 Dose: 9 mg Nicotine (Habitrol) 14 mg TRDERM DAILY [facility] Last Admin: 02/15/18 09:14 Dose: 14 mg Nicotine Polacrilex (Nicorelief) 2 mg CHEW Q1H PRN PRN Reason: Other Ondansetron HCl (Zofran) 4 mg IV Q4H PRN PRN Reason: Nausea/Vomiting Last Admin: 02/14/18 09:48 Dose: 4 mg Polyethylene Glycol (Miralax) 17 gm PO DAILY PRN PRN Reason: Constipation Senna/Docusate Sodium (Senna Plus) 1 tab PO BID PRN PRN Reason: Constipation Last Admin: 02/13/18 21:54 Dose: 1 tab Sodium Chloride (Saline Flush) 10 ml FLUSH ASDIRECTED PRN PRN Reason: Keep Vein Open Spironolactone (Aldactone) 25 mg PO TID [facility] TO [facility] Discontinued Medications Bacitracin (Bacitracin Oint 1 Gm) 1 dose TOP ONETIME ONE Stop: 02/14/18 18:29 Last Admin: 02/14/18 21:50 Dose: 1 dose Bacitracin (Bacitracin Oint 1 Gm) Confirm Administered Dose 1 dose .ROUTE .STK- MED ONE Stop: 02/14/18 21:49 Last Admin: 02/14/18 21:51 Dose: Not Given Furosemide (Lasix) 20 mg IVPUSH NOW ONE Stop: 02/13/18 17:31 Last Admin: 02/13/18 18:36 Dose: Not Given Furosemide (Lasix) 20 mg IVPUSH NOW ONE Stop: 02/13/18 17:31 Last Admin: 02/13/18 18:16 Dose: 20 mg Lactated Ringer's (Ringers, Lactated) 1,000 mls @ 250 mls/hr IV ASDIRECTED [facility] Stop: 02/14/18 00:31 Last Admin: 02/13/18 20:05 Dose: 175 mls/hr Lactated Ringer's (Ringers, Lactated) 1,000 mls @ 125 mls/hr IV ASDIRECTED [facility] Last Admin: 02/14/18 08:49 Dose: 125 mls/hr Lactated Ringer's (Ringers, Lactated) 500 mls @ 500 mls/hr IV .BOLUS [facility] Last Admin: 02/14/18 02:45 Dose: 200 mls/hr Potassium Chloride 20 meq/Lidocaine HCl 2 ml/ Sodium Chloride 112 mls @ 50 mls/ hr IV Q2H [facility] Stop: 02/14/18 09:59 Last Admin: 02/14/18 08:47 Dose: 50 mls/hr Potassium Chloride (Kcl 20 Meq In Water 100 Ml) Confirm Administered Dose 100 mls @ as directed .ROUTE .STK-MED ONE Stop: 02/14/18 05:58 Last Admin: 02/14/18 06:04 Dose: Not Given Albumin Human (Flexbumin 25%) 50 mls @ 25 mls/hr IV Q6H [facility] Last Admin: 02/15/18 04:46 Dose: 25 mls/hr Lactated Ringer's (Ringers, Lactated) 1,000 mls @ 50 mls/hr IV ASDIRECTED [facility] TO [facility] Potassium Chloride 20 meq/Lidocaine HCl 2 ml/ Sodium Chloride 112 mls @ 56 mls/ hr IV ONETIME ONE Stop: 02/15/18 11:59 Last Admin: 02/15/18 11:08 Dose: 56 mls/hr Sodium Chloride (Normal Saline) 1,000 mls @ 50 mls/hr IV ASDIRECTED [facility] Last Admin: 02/15/18 11:13 Dose: 50 mls/hr Oxycodone HCl (Oxycodone) 5 mg PO Q4H PRN PRN Reason: Pain (moderate 4-6) Potassium Chloride (Klor-Con M20) 40 meq PO ONETIME ONE Stop: 02/13/18 17:31 Last Admin: 02/13/18 18:16 Dose: 40 meq Potassium Chloride (Klor-Con M20) 40 meq PO ONETIME ONE Stop: 02/14/18 13:01 Last Admin: 02/14/18 12:32 Dose: 40 meq Potassium Chloride (Klor-Con M20) 40 meq PO ONETIME ONE Stop: 02/14/18 17:01 Last Admin: 02/14/18 16:50 Dose: 40 meq Potassium Chloride (Klor-Con M20) 40 meq PO ONETIME ONE Stop: 02/15/18 09:01 Last Admin: 02/15/18 09:36 Dose: 40 meq Spironolactone (Aldactone) 25 mg PO TID [facility]END[facility] TO [facility] Last Admin: 02/15/18 09:14 Dose: 25 mg - Exam Quality Assessment: DVT Prophylaxis General: Alert, Oriented, Cooperative, No Acute Distress Lungs: Clear to Auscultation, Normal Respiratory Effort Cardiovascular: Regular Rate, Regular Rhythm, No Murmurs GI/Abdominal Exam: Soft, Non-Tender, No Organomegaly, Distended. No: Guarding, Rigid, Rebound Extremities: Non-Tender, Pedal Edema Skin: Warm, Dry, Intact - Problem List Review Problem List Initiated/Reviewed/Updated: Yes - My Orders Last 24 Hours: My Active Orders 02/14/18 13:00 Albumin 25% [Flexbumin 25%] 50 ml IV Q6H 02/14/18 15:55 MITOCHONDRIAL (M2) ANTIBODY Routine 02/15/18 13:17 Convert IV to Saline Lock [OM.PC] Routine 02/15/18 14:00 Spironolactone [Aldactone] 25 mg PO TID 02/15/18 16:30 GLUCOSE POC LAB TO COLLECT [POC] QIDACANDBED 02/15/18 21:00 GLUCOSE POC LAB TO COLLECT [POC] QIDACANDBED 02/16/18 05:00 CBC WITH AUTO DIFF [HEME] Timed COMPREHENSIVE METABOLIC PN,CMP [CHEM] Timed MAGNESIUM [CHEM] Timed 02/16/18 07:30 GLUCOSE POC LAB TO COLLECT [POC] QIDACANDBED 02/16/18 11:30 GLUCOSE POC LAB TO COLLECT [POC] QIDACANDBED 02/16/18 16:30 GLUCOSE POC LAB TO COLLECT [POC] QIDACANDBED 02/16/18 21:00 GLUCOSE POC LAB TO COLLECT [POC] QIDACANDBED 02/17/18 07:30 GLUCOSE POC LAB TO COLLECT [POC] QIDACANDBED 02/17/18 11:30 GLUCOSE POC LAB TO COLLECT [POC] QIDACANDBED 02/17/18 16:30 GLUCOSE POC LAB TO COLLECT [POC] QIDACANDBED 02/17/18 21:00 GLUCOSE POC LAB TO COLLECT [POC] QIDACANDBED 02/18/18 07:30 GLUCOSE POC LAB TO COLLECT [POC] QIDACANDBED 02/18/18 11:30 GLUCOSE POC LAB TO COLLECT [POC] QIDACANDBED 02/18/18 16:30 GLUCOSE POC LAB TO COLLECT [POC] QIDACANDBED - Plan Plan:: ASSESSMENT AND PLAN HEPATIC CIRRHOSIS-likely secondary to fatty liver and chronic alcohol use, associated with significant ascites. Outpatient evaluation is been negative for any evidence of obstruction and other studies to evaluate for causes of cirrhosis have been negative. -Anti-smooth muscle antibody and antimitochondrial antibodies pending -Consult Dr. Espinoza for paracentesis -Albumin IV 4 times daily -2 g sodium diet -Patient encouraged to avoid further alcohol use ACUTE KIDNEY INJURY-probable component of hepatorenal syndrome, poor urine output over the past few days. Bladder scan done at the clinic suggested large volume bladder with urinary retention. I think this was likely secondary to her ascitic fluid, Douglas catheter monitor urine output -Reassess kidney function in a.m. -Closely monitor urine output -Saline lock IV -Albumin as above URINARY TRACT INFECTION -Urine culture pending -Rocephin 1 g IV every 24 hours TYPE 2 DIABETES MELLITUS -Hold glipizide -4 times a day glucometers -Low-dose sliding scale NovoLog MAINTENANCE ISSUES -DVT prophylaxis; Lovenox 40 mg subcutaneous daily -GI prophylaxis; not indicated -Douglas catheter; required to closely monitor urine output -Nutrition; 2 g sodium diet, consistent carb diet -Nicotine dependence; 14 mg nicotinic patch CODE STATUS-FULL CODE ADMISSION STATUS-this patient will be admitted to observation status, expect no more than a one night hospital stay for evaluation and management of problems as outlined above. DISPOSITION-anticipate discharge to home after the hospital stay. PRIMARY CARE PROVIDER-Dr. Tenorio
[2018-02-15] MEDS: Spironolactone 25 MG Tab PO SCH ×2 (13:35→20:50)
[2018-02-15] MEDS: Magnesium Hydroxide 400 MG/5 ML Susp 30 ML Cup PO PRN (14:17)
[2018-02-15] MEDS: Midodrine 5 MG Tab PO SCH (16:07)
[2018-02-15] MEDS: Trolamine Salicylate/Aloe Vera 10% Crm 85 GM Tube TOP PRN (17:03)
[2018-02-15] MEDS: Melatonin 3 MG Tab PO SCH (20:50)
[2018-02-15] MEDS: Octreotide 100 MCG/ML SDV SUBCUT SCH (20:54)
[2018-02-16] MEDS: Albumin 25% 50 ML IV SCH ×4 (01:15→19:28)
[2018-02-16] MEDS: Midodrine 5 MG Tab PO SCH ×3 (01:15→15:28)
[2018-02-16] MEDS: Insulin Aspart 100 Units/ML 3 ML Pen SUBCUT SCH ×4 (08:10→21:22)
[2018-02-16] MEDS: Enoxaparin 40 MG/0.4 ML Syringe SUBCUT SCH (08:12)
[2018-02-16] MEDS: Nicotine 14 MG/24 Hr Patch TRDERM SCH (08:12)
[2018-02-16] MEDS: Spironolactone 25 MG Tab PO SCH ×3 (08:12→20:41)
[2018-02-16] MEDS: Magnesium Oxide 400 MG Tab PO SCH ×2 (08:13→20:41)
[2018-02-16] MEDS: Octreotide 100 MCG/ML SDV SUBCUT SCH ×3 (08:17→20:47)
[2018-02-16] MEDS: cefTRIAXone 1 GM in Sodium Chloride 0.9% 50 ML IV SCH (08:17)
--- NOTE | 2018-02-16 13:08 | PCM.PN ---
- General Info Date of Service: 02/16/18 Subjective Update: This patient has remained stable over the past 24 hours, urine output has improved with current management. She denies significant discomfort, appetite and energy level seem to be improving. Staph epidermidis is growing from the urine and found to be pansensitive. Antibiotic therapy is been changed to doxycycline IV. - Review of Systems General: Reports: Weakness. Denies: Fever, Chills Pulmonary: Reports: No Symptoms Cardiovascular: Reports: No Symptoms Gastrointestinal: Reports: No Symptoms Genitourinary: Reports: No Symptoms - Patient Data Vitals - Most Recent: Last Vital Signs Temp 98.2 F 02/16/18 07:00 Pulse 70 02/16/18 07:00 Resp 18 02/16/18 07:00 BP 113/61 02/16/18 07:00 Pulse Ox 92 L 02/16/18 07:00 Weight - Most Recent: 243 lb 12.8 oz I&O - Last 24 Hours: Intake & Output 02/15/18 02/16/18 02/16/18 22:59 06:59 14:59 Intake Total 50 698 270 Output Total 98 275 Balance -48 423 270 Lab Results Last 24 Hours: Laboratory Results - last 24 hr 02/16/18 02/16/18 Range/Units 05:50 05:50 WBC 9.2 (4.5-11.0) K/uL RBC 3.64 (3.30-5.50) M/uL Hgb 12.4 (12.0-15.0) g/dL Hct 37.4 (36.0-48.0) % MCV 103 H (80-98) fL MCH 34 H (27-31) pg MCHC 33 (32-36) % Plt Count 176 (150-400) K/uL Neut % (Auto) 64 (36-66) % Lymph % (Auto) 23 L (24-44) % [place] % (Auto) 9 H (2-6) % Eos % (Auto) 3 (2-4) % Baso % (Auto) 1 (0-1) % Sodium 140 (140-148) mmol/L Potassium 4.0 (3.6-5.2) mmol/L Chloride 103 (100-108) mmol/L Carbon Dioxide 31 (21-32) mmol/L Anion Gap 6.3 (5.0-14.0) mmol/L BUN 16 (7-18) mg/dL Creatinine 0.9 (0.6-1.0) mg/dL Est Cr Clr Drug Dosing 59.26 mL/min Estimated GFR (MDRD) > 60 (>60) Glucose 215 H (74-106) mg/dL Calcium 8.4 L (8.5-10.1) mg/dL Magnesium 2.2 (1.8-2.4) mg/dL Total Bilirubin 2.3 H (0.2-1.0) mg/dL AST 54 H (15-37) U/L ALT 17 (12-78) U/L Alkaline Phosphatase 132 H (46-116) U/L Total Protein 5.8 L (6.4-8.2) g/dL Albumin 2.7 L (3.4-5.0) g/dL Globulin 3.1 (2.3-3.5) g/dL Albumin/Globulin Ratio 0.9 L (1.2-2.2) Daljit Results Last 24 Hours: Microbiology 02/14/18 18:50 Gram Stain - Final Paracentesis Fluid Body Fluid Culture - Preliminary NO GROWTH AFTER 1 DAY 02/13/18 20:25 Urine Culture - Final Urine, Catheterized Staphylococcus Epidermidis Med Orders - Current: Current Medications Hydrocodone Bitart/Acetaminophen ([place] 325-5 Mg) 1 - 2 tab PO Q4H PRN PRN Reason: Pain Last Admin: 02/14/18 21:55 Dose: 2 tab Dextrose (Glutose 15) 15 gm PO ONETIME PRN PRN Reason: Hypoglycemia Dextrose/Water (Dextrose 50% In Water) 50 ml IV ONETIME PRN PRN Reason: Hypoglycemia Diphenhydramine HCl (Benadryl) 25 - 50 mg PO Q4H PRN PRN Reason: Itching Last Admin: 02/15/18 09:37 Dose: 50 mg Enoxaparin Sodium (Lovenox) 40 mg SUBCUT DAILY [facility] Last Admin: 02/16/18 08:12 Dose: 40 mg Albumin Human (Flexbumin 25%) 50 mls @ 25 mls/hr IV Q6H [facility] Last Admin: 02/16/18 08:10 Dose: 25 mls/hr Doxycycline Hyclate 100 mg/ (Sodium Chloride) 100 mls @ 100 mls/hr IV Q12H [facility] Insulin Aspart (Novolog) 0 unit SUBCUT QIDACANDBED [facility]; Protocol Last Admin: 02/16/18 08:10 Dose: 3 units Magnesium Hydroxide (Milk Of Magnesia) 30 ml PO Q12H PRN PRN Reason: Constipation Last Admin: 02/15/18 14:17 Dose: 30 ml Magnesium Oxide (Magnesium Oxide) 400 mg PO BID [facility] Last Admin: 02/16/18 08:13 Dose: 400 mg Melatonin (Melatonin) 9 mg PO BEDTIME [facility] Last Admin: 02/15/18 20:50 Dose: 9 mg Midodrine (Midodrine) 7.5 mg PO Q8H [facility] Last Admin: 02/16/18 08:11 Dose: 7.5 mg Nicotine (Habitrol) 14 mg TRDERM DAILY [facility] Last Admin: 02/16/18 08:12 Dose: 14 mg Nicotine Polacrilex (Nicorelief) 2 mg CHEW Q1H PRN PRN Reason: Other Octreotide Acetate (Sandostatin) 100 mcg SUBCUT TID [facility] Last Admin: 02/16/18 08:17 Dose: 100 mcg Ondansetron HCl (Zofran) 4 mg IV Q4H PRN PRN Reason: Nausea/Vomiting Last Admin: 02/14/18 09:48 Dose: 4 mg Polyethylene Glycol (Miralax) 17 gm PO DAILY PRN PRN Reason: Constipation Senna/Docusate Sodium (Senna Plus) 1 tab PO BID PRN PRN Reason: Constipation Last Admin: 02/13/18 21:54 Dose: 1 tab Sodium Chloride (Saline Flush) 10 ml FLUSH ASDIRECTED PRN PRN Reason: Keep Vein Open Spironolactone (Aldactone) 25 mg PO TID [facility] Last Admin: 02/16/18 08:12 Dose: 25 mg Trolamine Salicylate (Aspercreme 10%) 0 gm TOP Q1H PRN PRN Reason: Pain Last Admin: 02/15/18 17:03 Dose: 1 applic Discontinued Medications Bacitracin (Bacitracin Oint 1 Gm) 1 dose TOP ONETIME ONE Stop: 02/14/18 18:29 Last Admin: 02/14/18 21:50 Dose: 1 dose Bacitracin (Bacitracin Oint 1 Gm) Confirm Administered Dose 1 dose .ROUTE .STK- MED ONE Stop: 02/14/18 21:49 Last Admin: 02/14/18 21:51 Dose: Not Given Furosemide (Lasix) 20 mg IVPUSH NOW ONE Stop: 02/13/18 17:31 Last Admin: 02/13/18 18:36 Dose: Not Given Furosemide (Lasix) 20 mg IVPUSH NOW ONE Stop: 02/13/18 17:31 Last Admin: 02/13/18 18:16 Dose: 20 mg Lactated Ringer's (Ringers, Lactated) 1,000 mls @ 250 mls/hr IV ASDIRECTED [facility] Stop: 02/14/18 00:31 Last Admin: 02/13/18 20:05 Dose: 175 mls/hr Lactated Ringer's (Ringers, Lactated) 1,000 mls @ 125 mls/hr IV ASDIRECTED [facility] Last Admin: 02/14/18 08:49 Dose: 125 mls/hr Lactated Ringer's (Ringers, Lactated) 500 mls @ 500 mls/hr IV .BOLUS [facility] Last Admin: 02/14/18 02:45 Dose: 200 mls/hr Potassium Chloride 20 meq/Lidocaine HCl 2 ml/ Sodium Chloride 112 mls @ 50 mls/ hr IV Q2H [facility] Stop: 02/14/18 09:59 Last Admin: 02/14/18 08:47 Dose: 50 mls/hr Potassium Chloride (Kcl 20 Meq In Water 100 Ml) Confirm Administered Dose 100 mls @ as directed .ROUTE .STK-MED ONE Stop: 02/14/18 05:58 Last Admin: 02/14/18 06:04 Dose: Not Given Ceftriaxone Sodium 1 gm/ (Sodium Chloride) 50 mls @ 100 mls/hr IV Q24H [facility] Last Admin: 02/16/18 08:17 Dose: 100 mls/hr Albumin Human (Flexbumin 25%) 50 mls @ 25 mls/hr IV Q6H [facility] Last Admin: 02/15/18 04:46 Dose: 25 mls/hr Lactated Ringer's (Ringers, Lactated) 1,000 mls @ 50 mls/hr IV ASDIRECTED [facility] Potassium Chloride 20 meq/Lidocaine HCl 2 ml/ Sodium Chloride 112 mls @ 56 mls/ hr IV ONETIME ONE Stop: 02/15/18 11:59 Last Admin: 02/15/18 11:08 Dose: 56 mls/hr Sodium Chloride (Normal Saline) 1,000 mls @ 50 mls/hr IV ASDIRECTED [facility] Last Admin: 02/15/18 11:13 Dose: 50 mls/hr Oxycodone HCl (Oxycodone) 5 mg PO Q4H PRN PRN Reason: Pain (moderate 4-6) Potassium Chloride (Klor-Con M20) 40 meq PO ONETIME ONE Stop: 02/13/18 17:31 Last Admin: 02/13/18 18:16 Dose: 40 meq Potassium Chloride (Klor-Con M20) 40 meq PO ONETIME ONE Stop: 02/14/18 13:01 Last Admin: 02/14/18 12:32 Dose: 40 meq Potassium Chloride (Klor-Con M20) 40 meq PO ONETIME ONE Stop: 02/14/18 17:01 Last Admin: 02/14/18 16:50 Dose: 40 meq Potassium Chloride (Klor-Con M20) 40 meq PO ONETIME ONE Stop: 02/15/18 09:01 Last Admin: 02/15/18 09:36 Dose: 40 meq Spironolactone (Aldactone) 25 mg PO TID [facility] Last Admin: 02/15/18 09:14 Dose: 25 mg - Exam Quality Assessment: Urine Catheter, DVT Prophylaxis General: Alert, Oriented, Cooperative, Mild Distress Lungs: Clear to Auscultation, Normal Respiratory Effort Cardiovascular: Regular Rate, Regular Rhythm, No Murmurs GI/Abdominal Exam: Soft, Non-Tender, No Organomegaly, Distended Extremities: Non-Tender, Pedal Edema Skin: Warm, Dry, Intact - Problem List Review Problem List Initiated/Reviewed/Updated: Yes - My Orders Last 24 Hours: My Active Orders 02/15/18 13:17 Convert IV to Saline Lock [OM.PC] Routine 02/15/18 14:00 Spironolactone [Aldactone] 25 mg PO TID 02/15/18 16:00 Midodrine 7.5 mg PO Q8H 02/15/18 16:36 Trolamine Salicylate/Aloe Vera [Aspercreme 10%] 0 gm TOP Q1H PRN 02/15/18 21:00 Octreotide [SandoSTATIN] 100 mcg SUBCUT TID 02/16/18 09:00 Doxycycline [Vibramycin] 100 mg Sodium Chloride 0.9% [Normal Saline] 100 ml IV Q12H 02/16/18 16:30 GLUCOSE POC LAB TO COLLECT [POC] QIDACANDBED 02/16/18 21:00 GLUCOSE POC LAB TO COLLECT [POC] QIDACANDBED 02/17/18 05:00 CBC WITH AUTO DIFF [HEME] Timed COMPREHENSIVE METABOLIC PN,CMP [CHEM] Timed 02/17/18 07:30 GLUCOSE POC LAB TO COLLECT [POC] QIDACANDBED 02/17/18 11:30 GLUCOSE POC LAB TO COLLECT [POC] QIDACANDBED 02/17/18 16:30 GLUCOSE POC LAB TO COLLECT [POC] QIDACANDBED 02/17/18 21:00 GLUCOSE POC LAB TO COLLECT [POC] QIDACANDBED 02/18/18 07:30 GLUCOSE POC LAB TO COLLECT [POC] QIDACANDBED 02/18/18 11:30 GLUCOSE POC LAB TO COLLECT [POC] QIDACANDBED 02/18/18 16:30 GLUCOSE POC LAB TO COLLECT [POC] QIDACANDBED - Plan Plan:: ASSESSMENT AND PLAN HEPATIC CIRRHOSIS-likely secondary to fatty liver and chronic alcohol use, associated with significant ascites. Outpatient evaluation is been negative for any evidence of obstruction and other studies to evaluate for causes of cirrhosis have been negative. -Anti-smooth muscle antibody and antimitochondrial antibodies pending -Consult Dr. Espinoza for paracentesis -Albumin IV 4 times daily -Octreotide and Midodrine on as ordered -2 g sodium diet -Patient encouraged to avoid further alcohol use ACUTE KIDNEY INJURY-probable component of hepatorenal syndrome, urine output has improved with current management - Douglas catheter monitor urine output -Reassess kidney function in a.m. -Closely monitor urine output -Saline lock IV -Medical therapy as above URINARY TRACT INFECTION-urine culture growing staph epidermidis -Urine culture pending -Discontinue Rocephin -Doxycycline 100 mg IV every 12 hours TYPE 2 DIABETES MELLITUS -Hold glipizide -4 times a day glucometers -Low-dose sliding scale NovoLog MAINTENANCE ISSUES -DVT prophylaxis; Lovenox 40 mg subcutaneous daily -GI prophylaxis; not indicated -Douglas catheter; required to closely monitor urine output -Nutrition; 2 g sodium diet, consistent carb diet -Nicotine dependence; 14 mg nicotinic patch CODE STATUS-FULL CODE ADMISSION STATUS-this patient will be admitted to observation status, expect no more than a one night hospital stay for evaluation and management of problems as outlined above. DISPOSITION-anticipate discharge to home after the hospital stay. PRIMARY CARE PROVIDER-Dr. Tenorio
[2018-02-16] MEDS: Doxycycline 100 MG in Sodium Chloride 0.9% 100 ML IV SCH ×2 (13:38→20:48)
[2018-02-16] MEDS: Trolamine Salicylate/Aloe Vera 10% Crm 85 GM Tube TOP PRN ×2 (14:46→20:35)
[2018-02-16] MEDS: Melatonin 3 MG Tab PO SCH (20:41)
[2018-02-17] MEDS: Midodrine 5 MG Tab PO SCH ×3 (01:19→15:20)
[2018-02-17] MEDS: Albumin 25% 50 ML IV SCH ×4 (01:20→19:40)
[2018-02-17] MEDS: Spironolactone 25 MG Tab PO SCH ×3 (08:20→20:39)
[2018-02-17] MEDS: Nicotine 14 MG/24 Hr Patch TRDERM SCH (08:20)
[2018-02-17] MEDS: Enoxaparin 40 MG/0.4 ML Syringe SUBCUT SCH (08:20)
[2018-02-17] MEDS: Insulin Aspart 100 Units/ML 3 ML Pen SUBCUT SCH ×4 (08:26→21:38)
[2018-02-17] MEDS: Octreotide 100 MCG/ML SDV SUBCUT SCH (09:48)
[2018-02-17] MEDS: Acetaminophen/HYDROcodone 325-5 MG Tab PO PRN ×2 (09:48→21:37)
[2018-02-17] MEDS: Magnesium Oxide 400 MG Tab PO SCH ×2 (09:48→20:40)
[2018-02-17] MEDS: Doxycycline 100 MG in Sodium Chloride 0.9% 100 ML IV SCH (10:17)
[2018-02-17] MEDS ORDERED: Bacitracin Oint 1 GM U/D Packet TOP ONE (12:45)
--- NOTE | 2018-02-17 13:56 | PCM.PN ---
- General Info Date of Service: 02/17/18 Subjective Update: This patient has remained stable since yesterday, renal function has improved with current management although urine output has remained relatively low. Large volume paracentesis performed this afternoon by Dr. Espinoza with approximately 6 L of ascitic fluid removed. Appetite remains somewhat poor she is encouraged to try and increase oral intake as well as activity. Functional Status: Reports: Pain Controlled, Tolerating Diet, Urinating - Review of Systems General: Reports: Weakness. Denies: Fever, Chills Pulmonary: Reports: No Symptoms Cardiovascular: Reports: No Symptoms Gastrointestinal: Reports: Decreased Appetite, Other (Abdominal distention secondary to ascitic fluid). Denies: Constipation, Diarrhea, Difficulty Swallowing, Nausea, Vomiting Genitourinary: Reports: No Symptoms - Patient Data Vitals - Most Recent: Last Vital Signs Temp 98.1 F 02/17/18 03:00 Pulse 67 02/17/18 03:00 Resp 16 02/17/18 03:00 BP 113/69 02/17/18 03:00 Pulse Ox 93 L 02/17/18 03:00 Weight - Most Recent: 243 lb 12.8 oz I&O - Last 24 Hours: Intake & Output 02/16/18 02/17/18 02/17/18 22:59 06:59 14:59 Intake Total 1050 50 Output Total 150 300 Balance 900 -250 Lab Results Last 24 Hours: Laboratory Results - last 24 hr 02/14/18 02/17/18 02/17/18 Range/Units 04:45 05:50 05:50 WBC 9.1 (4.5-11.0) K/uL RBC 3.63 (3.30-5.50) M/uL Hgb 12.4 (12.0-15.0) g/dL Hct 37.9 (36.0-48.0) % MCV 104 H (80-98) fL MCH 34 H (27-31) pg MCHC 33 (32-36) % Plt Count 176 (150-400) K/uL Neut % (Auto) 64 (36-66) % Lymph % (Auto) 23 L (24-44) % Cameron % (Auto) 9 H (2-6) % Eos % (Auto) 3 (2-4) % Baso % (Auto) 1 (0-1) % Sodium 140 (140-148) mmol/L Potassium 3.9 (3.6-5.2) mmol/L Chloride 103 (100-108) mmol/L Carbon Dioxide 30 (21-32) mmol/L Anion Gap 7.0 (5.0-14.0) mmol/L BUN 13 (7-18) mg/dL Creatinine 0.9 (0.6-1.0) mg/dL Est Cr Clr Drug Dosing 59.26 mL/min Estimated GFR (MDRD) > 60 (>60) Glucose 242 H (74-106) mg/dL Calcium 8.2 L (8.5-10.1) mg/dL Total Bilirubin 2.5 H (0.2-1.0) mg/dL AST 60 H (15-37) U/L ALT 17 (12-78) U/L Alkaline Phosphatase 114 (46-116) U/L Total Protein 5.9 L (6.4-8.2) g/dL Albumin 3.0 L (3.4-5.0) g/dL Globulin 2.9 (2.3-3.5) g/dL Albumin/Globulin Ratio 1.0 L (1.2-2.2) Anti-Smooth Muscle Ab 21 H (0-19) Units Daljit Results Last 24 Hours: Microbiology 02/14/18 18:50 Gram Stain - Final Paracentesis Fluid Body Fluid Culture - Preliminary NO GROWTH AFTER 2 DAYS Med Orders - Current: Current Medications Hydrocodone Bitart/Acetaminophen (Miranda 325-5 Mg) 1 - 2 tab PO Q4H PRN PRN Reason: Pain Last Admin: 02/17/18 09:48 Dose: 2 tab Dextrose (Glutose 15) 15 gm PO ONETIME PRN PRN Reason: Hypoglycemia Dextrose/Water (Dextrose 50% In Water) 50 ml IV ONETIME PRN PRN Reason: Hypoglycemia Diphenhydramine HCl (Benadryl) 25 - 50 mg PO Q4H PRN PRN Reason: Itching Last Admin: 02/15/18 09:37 Dose: 50 mg Enoxaparin Sodium (Lovenox) 40 mg SUBCUT DAILY JOSEPH Last Admin: 02/17/18 08:20 Dose: 40 mg Albumin Human (Flexbumin 25%) 50 mls @ 25 mls/hr IV Q6H JOSEPH Stop: 02/18/18 07:00 Last Admin: 02/17/18 08:09 Dose: 25 mls/hr Doxycycline Hyclate 100 mg/ (Sodium Chloride) 100 mls @ 100 mls/hr IV Q12H [facility] Last Admin: 02/17/18 10:17 Dose: 100 mls/hr Insulin Aspart (Novolog) 0 unit SUBCUT QIDACANDBED [facility]; Protocol Last Admin: 02/17/18 12:50 Dose: 3 units Magnesium Hydroxide (Milk Of Magnesia) 30 ml PO Q12H PRN PRN Reason: Constipation Last Admin: 02/15/18 14:17 Dose: 30 ml Magnesium Oxide (Magnesium Oxide) 400 mg PO BID [facility] Last Admin: 02/17/18 09:48 Dose: 400 mg Melatonin (Melatonin) 9 mg PO BEDTIME [facility] Last Admin: 02/16/18 20:41 Dose: 9 mg Midodrine (Midodrine) 7.5 mg PO Q8H [facility] Last Admin: 02/17/18 08:20 Dose: 7.5 mg Nicotine (Habitrol) 14 mg TRDERM DAILY [facility] Last Admin: 02/17/18 08:20 Dose: 14 mg Nicotine Polacrilex (Nicorelief) 2 mg CHEW Q1H PRN PRN Reason: Other Ondansetron HCl (Zofran) 4 mg IV Q4H PRN PRN Reason: Nausea/Vomiting Last Admin: 02/14/18 09:48 Dose: 4 mg Polyethylene Glycol (Miralax) 17 gm PO DAILY PRN PRN Reason: Constipation Senna/Docusate Sodium (Senna Plus) 1 tab PO BID PRN PRN Reason: Constipation Last Admin: 02/13/18 21:54 Dose: 1 tab Sodium Chloride (Saline Flush) 10 ml FLUSH ASDIRECTED PRN PRN Reason: Keep Vein Open Spironolactone (Aldactone) 25 mg PO TID [facility] Last Admin: 02/17/18 08:20 Dose: 25 mg Trolamine Salicylate (Aspercreme 10%) 0 gm TOP Q1H PRN PRN Reason: Pain Last Admin: 02/16/18 20:35 Dose: 1 applic Discontinued Medications Bacitracin (Bacitracin Oint 1 Gm) 1 dose TOP ONETIME ONE Stop: 02/14/18 18:29 Last Admin: 02/14/18 21:50 Dose: 1 dose Bacitracin (Bacitracin Oint 1 Gm) Confirm Administered Dose 1 dose .ROUTE .[facility] ONE Stop: 02/14/18 21:49 Last Admin: 02/14/18 21:51 Dose: Not Given Bacitracin (Bacitracin Oint 1 Gm) 2 dose TOP ONETIME ONE Stop: 02/17/18 12:46 Furosemide (Lasix) 20 mg IVPUSH NOW ONE Stop: 02/13/18 17:31 Last Admin: 02/13/18 18:36 Dose: Not Given Furosemide (Lasix) 20 mg IVPUSH NOW ONE Stop: 02/13/18 17:31 Last Admin: 02/13/18 18:16 Dose: 20 mg Lactated Ringer's (Ringers, Lactated) 1,000 mls @ 250 mls/hr IV ASDIRECTED [facility] Stop: 02/14/18 00:31 Last Admin: 02/13/18 20:05 Dose: 175 mls/hr Lactated Ringer's (Ringers, Lactated) 1,000 mls @ 125 mls/hr IV ASDIRECTED [facility] Last Admin: 02/14/18 08:49 Dose: 125 mls/hr Lactated Ringer's (Ringers, Lactated) 500 mls @ 500 mls/hr IV .BOLUS [facility] Last Admin: 02/14/18 02:45 Dose: 200 mls/hr Potassium Chloride 20 meq/Lidocaine HCl 2 ml/ Sodium Chloride 112 mls @ 50 mls/ hr IV Q2H [facility] Stop: 02/14/18 09:59 Last Admin: 02/14/18 08:47 Dose: 50 mls/hr Potassium Chloride (Kcl 20 Meq In Water 100 Ml) Confirm Administered Dose 100 mls @ as directed .ROUTE .[facility] ONE Stop: 02/14/18 05:58 Last Admin: 02/14/18 06:04 Dose: Not Given Ceftriaxone Sodium 1 gm/ (Sodium Chloride) 50 mls @ 100 mls/hr IV Q24H [facility] Last Admin: 02/16/18 08:17 Dose: 100 mls/hr Albumin Human (Flexbumin 25%) 50 mls @ 25 mls/hr IV Q6H [facility] Last Admin: 02/15/18 04:46 Dose: 25 mls/hr Lactated Ringer's (Ringers, Lactated) 1,000 mls @ 50 mls/hr IV ASDIRECTED [facility] Potassium Chloride 20 meq/Lidocaine HCl 2 ml/ Sodium Chloride 112 mls @ 56 mls/ hr IV ONETIME ONE Stop: 02/15/18 11:59 Last Admin: 02/15/18 11:08 Dose: 56 mls/hr Sodium Chloride (Normal Saline) 1,000 mls @ 50 mls/hr IV ASDIRECTED [facility] Last Admin: 02/15/18 11:13 Dose: 50 mls/hr Octreotide Acetate (Sandostatin) 100 mcg SUBCUT TID [facility] Last Admin: 02/17/18 09:48 Dose: 100 mcg Oxycodone HCl (Oxycodone) 5 mg PO Q4H PRN PRN Reason: Pain (moderate 4-6) Potassium Chloride (Klor-Con M20) 40 meq PO ONETIME ONE Stop: 02/13/18 17:31 Last Admin: 02/13/18 18:16 Dose: 40 meq Potassium Chloride (Klor-Con M20) 40 meq PO ONETIME ONE Stop: 02/14/18 13:01 Last Admin: 02/14/18 12:32 Dose: 40 meq Potassium Chloride (Klor-Con M20) 40 meq PO ONETIME ONE Stop: 02/14/18 17:01 Last Admin: 02/14/18 16:50 Dose: 40 meq Potassium Chloride (Klor-Con M20) 40 meq PO ONETIME ONE Stop: 02/15/18 09:01 Last Admin: 02/15/18 09:36 Dose: 40 meq Spironolactone (Aldactone) 25 mg PO TID [facility] Last Admin: 02/15/18 09:14 Dose: 25 mg - Exam Quality Assessment: Urine Catheter General: Alert, Oriented, Cooperative, Mild Distress Lungs: Clear to Auscultation, Normal Respiratory Effort Cardiovascular: Regular Rate, Regular Rhythm, No Murmurs GI/Abdominal Exam: Soft, Non-Tender, No Organomegaly, Distended. No: Guarding, Rigid, Rebound Extremities: Non-Tender, Pedal Edema Skin: Warm, Dry, Intact - Problem List Review Problem List Initiated/Reviewed/Updated: Yes - My Orders Last 24 Hours: My Active Orders 02/17/18 16:30 GLUCOSE POC LAB TO COLLECT [POC] QIDACANDBED 02/17/18 21:00 GLUCOSE POC LAB TO COLLECT [POC] QIDACANDBED 02/18/18 05:00 COMPREHENSIVE METABOLIC PN,CMP [CHEM] Timed 02/18/18 07:30 GLUCOSE POC LAB TO COLLECT [POC] QIDACANDBED 02/18/18 11:30 GLUCOSE POC LAB TO COLLECT [POC] QIDACANDBED 02/18/18 16:30 GLUCOSE POC LAB TO COLLECT [POC] QIDACANDBED - Plan Plan:: ASSESSMENT AND PLAN HEPATIC CIRRHOSIS-likely secondary to fatty liver and chronic alcohol use, associated with significant ascites. Outpatient evaluation is been negative for any evidence of obstruction and other studies to evaluate for causes of cirrhosis have been negative. Anti-smooth muscle body obtained and is negative. Large volume paracentesis performed this afternoon by Dr. Espinoza -antimitochondrial antibodies pending -Surgical follow-up per Dr. Espinoza and Dr. Briggs -Albumin IV 4 times daily, continue following paracentesis, discontinue in a.m. -Discontinue Octreotide -Midodrine 7.5 mg 3 times daily -2 g sodium diet -Patient encouraged to avoid further alcohol use ACUTE KIDNEY INJURY-probable component of hepatorenal syndrome, urine output and renal function have improved with current management -Discontinue Douglas catheter -Reassess kidney function in a.m. -Closely monitor urine output -Saline lock IV -Medical therapy as above URINARY TRACT INFECTION-urine culture growing staph epidermidis -Doxycycline 100 mg po every 12 hours TYPE 2 DIABETES MELLITUS -Hold glipizide -4 times a day glucometers -Low-dose sliding scale NovoLog MAINTENANCE ISSUES -DVT prophylaxis; Lovenox 40 mg subcutaneous daily -GI prophylaxis; not indicated -Douglas catheter; required to closely monitor urine output -Nutrition; 2 g sodium diet, consistent carb diet -Nicotine dependence; 14 mg nicotine patch CODE STATUS-FULL CODE ADMISSION STATUS-this patient will be admitted to observation status, expect no more than a one night hospital stay for evaluation and management of problems as outlined above. DISPOSITION-anticipate discharge to home after the hospital stay. PRIMARY CARE PROVIDER-Dr. Tenorio
[2018-02-17] MEDS ORDERED: Non-Formulary Medication 1 Each (Melatonin [Melatonin] 10 MG) PO PRN (14:39)
[2018-02-17] MEDS ORDERED: Melatonin 3 MG Tab PO PRN (14:44)
[2018-02-17] MEDS ORDERED: Bacitracin Oint 1 GM U/D Packet ONE (15:12)
[2018-02-17] MEDS: glipiZIDE 5 MG Tab PO SCH (20:39)
[2018-02-17] MEDS: Doxycycline 100 MG Cap PO SCH (20:40)
[2018-02-17] MEDS: Melatonin 3 MG Tab PO SCH (20:40)
[2018-02-18] MEDS: Midodrine 5 MG Tab PO SCH ×4 (00:45→21:01)
[2018-02-18] MEDS: Albumin 25% 50 ML IV SCH ×2 (00:46→08:03)
[2018-02-18] MEDS: Nicotine 14 MG/24 Hr Patch TRDERM SCH (08:03)
[2018-02-18] MEDS: Enoxaparin 40 MG/0.4 ML Syringe SUBCUT SCH (08:05)
[2018-02-18] MEDS: Spironolactone 25 MG Tab PO SCH ×2 (08:05→14:17)
[2018-02-18] MEDS: Doxycycline 100 MG Cap PO SCH ×2 (08:05→21:01)
[2018-02-18] MEDS: glipiZIDE 5 MG Tab PO SCH ×2 (08:05→21:01)
[2018-02-18] MEDS: Magnesium Oxide 400 MG Tab PO SCH ×2 (08:05→21:02)
[2018-02-18] MEDS: Insulin Aspart 100 Units/ML 3 ML Pen SUBCUT SCH ×4 (08:07→21:00)
[2018-02-18] MEDS: Magnesium Hydroxide 400 MG/5 ML Susp 30 ML Cup PO PRN (11:42)
[2018-02-18] MEDS ORDERED: Potassium Chloride 20 MEQ Tab.ER PO ONE (12:30)
[2018-02-18] MEDS ORDERED: Lactulose Soln 10 GM/15 ML 15 ML UD Cup PO PRN (13:14)
--- NOTE | 2018-02-18 13:17 | PCM.PN ---
- General Info Date of Service: 02/18/18 Functional Status: Reports: Pain Controlled, Tolerating Diet - Review of Systems General: Denies: Fever Gastrointestinal: Reports: Constipation Systems Review Comment:: there were no acute events overnight. Abdominal distention and pain are better after large volume paracentesis. She did not have any fevers overnight. She reports no bowel movement for a couple of days and is starting to become uncomfortable. Strength seems to be slowly improving. Still feels bloated. Urine output has not been very impressive. - Patient Data Vitals - Most Recent: Last Vital Signs Temp 36.2 C 02/18/18 11:00 Pulse 66 02/18/18 11:00 Resp 18 02/18/18 11:00 BP 101/69 02/18/18 11:00 Pulse Ox 93 L 02/18/18 11:00 Weight - Most Recent: 108.499 kg I&O - Last 24 Hours: Intake & Output 02/17/18 02/18/18 02/18/18 22:59 06:59 14:59 Intake Total 290 50 Output Total 300 225 200 Balance -10 -175 -200 Lab Results Last 24 Hours: Laboratory Results - last 24 hr 02/18/18 Range/Units 05:48 Sodium 141 (140-148) mmol/L Potassium 3.4 L (3.6-5.2) mmol/L Chloride 105 (100-108) mmol/L Carbon Dioxide 29 (21-32) mmol/L Anion Gap 10.4 (5.0-14.0) mmol/L BUN 11 (7-18) mg/dL Creatinine 0.8 (0.6-1.0) mg/dL Est Cr Clr Drug Dosing 66.67 mL/min Estimated GFR (MDRD) > 60 (>60) Glucose 202 H (74-106) mg/dL Calcium 8.0 L (8.5-10.1) mg/dL Total Bilirubin 2.0 H (0.2-1.0) mg/dL AST 38 H (15-37) U/L ALT 16 (12-78) U/L Alkaline Phosphatase 101 (46-116) U/L Total Protein 5.5 L (6.4-8.2) g/dL Albumin 2.8 L (3.4-5.0) g/dL Globulin 2.7 (2.3-3.5) g/dL Albumin/Globulin Ratio 1.0 L (1.2-2.2) Daljit Results Last 24 Hours: Microbiology 02/14/18 18:50 Gram Stain - Final Paracentesis Fluid Body Fluid Culture - Final NO GROWTH AFTER 3 DAYS Med Orders - Current: Current Medications Hydrocodone Bitart/Acetaminophen (Gardner 325-5 Mg) 1 - 2 tab PO Q4H PRN PRN Reason: Pain Last Admin: 02/17/18 21:37 Dose: 2 tab Dextrose (Glutose 15) 15 gm PO ONETIME PRN PRN Reason: Hypoglycemia Dextrose/Water (Dextrose 50% In Water) 50 ml IV ONETIME PRN PRN Reason: Hypoglycemia Diphenhydramine HCl (Benadryl) 25 - 50 mg PO Q4H PRN PRN Reason: Itching Last Admin: 02/15/18 09:37 Dose: 50 mg Doxycycline Hyclate (Vibramycin) 100 mg PO BID [facility] Last Admin: 02/18/18 08:05 Dose: 100 mg Enoxaparin Sodium (Lovenox) 40 mg SUBCUT DAILY [facility] Last Admin: 02/18/18 08:05 Dose: 40 mg Furosemide (Lasix) 40 mg PO BIDDIURETIC [facility] Glipizide (Glucotrol) 5 mg PO BID [facility] Last Admin: 02/18/18 08:05 Dose: 5 mg Insulin Aspart (Novolog) 0 unit SUBCUT QIDACANDBED [facility]; Protocol Last Admin: 02/18/18 11:35 Dose: 2 units Lactulose (Chronulac) 10 gm PO DAILY PRN PRN Reason: Constipation Magnesium Hydroxide (Milk Of Magnesia) 30 ml PO Q12H PRN PRN Reason: Constipation Last Admin: 02/18/18 11:42 Dose: 30 ml Magnesium Oxide (Magnesium Oxide) 400 mg PO BID [facility] Last Admin: 02/18/18 08:05 Dose: 400 mg Melatonin (Melatonin) 9 mg PO BEDTIME [facility] Last Admin: 02/17/18 20:40 Dose: 9 mg Melatonin (Melatonin) 9 mg PO BEDTIME PRN PRN Reason: SLEEP Midodrine (Midodrine) 7.5 mg PO TID [facility] Nicotine (Habitrol) 14 mg TRDERM DAILY [facility] Last Admin: 02/18/18 08:03 Dose: 14 mg Nicotine Polacrilex (Nicorelief) 2 mg CHEW Q1H PRN PRN Reason: Other Ondansetron HCl (Zofran) 4 mg IV Q4H PRN PRN Reason: Nausea/Vomiting Last Admin: 02/14/18 09:48 Dose: 4 mg Polyethylene Glycol (Miralax) 17 gm PO DAILY PRN PRN Reason: Constipation Senna/Docusate Sodium (Senna Plus) 1 tab PO BID PRN PRN Reason: Constipation Last Admin: 02/13/18 21:54 Dose: 1 tab Sodium Chloride (Saline Flush) 10 ml FLUSH ASDIRECTED PRN PRN Reason: Keep Vein Open Spironolactone (Aldactone) 25 mg PO BIDDIURETIC [facility]SE[facility] Trolamine Salicylate (Aspercreme 10%) 0 gm TOP Q1H PRN PRN Reason: Pain Last Admin: 02/16/18 20:35 Dose: 1 applic Discontinued Medications Bacitracin (Bacitracin Oint 1 Gm) 1 dose TOP ONETIME ONE Stop: 02/14/18 18:29 Last Admin: 02/14/18 21:50 Dose: 1 dose Bacitracin (Bacitracin Oint 1 Gm) Confirm Administered Dose 1 dose .ROUTE .STK- [facility] ONE Stop: 02/14/18 21:49 Last Admin: 02/14/18 21:51 Dose: Not Given Bacitracin (Bacitracin Oint 1 Gm) 2 dose TOP ONETIME ONE Stop: 02/17/18 12:46 Last Admin: 02/17/18 15:20 Dose: 2 dose Bacitracin (Bacitracin Oint 1 Gm) Confirm Administered Dose 2 dose .ROUTE .STK- MED ONE Stop: 02/17/18 15:13 Last Admin: 02/17/18 16:19 Dose: Not Given Furosemide (Lasix) 20 mg IVPUSH NOW ONE Stop: 02/13/18 17:31 Last Admin: 02/13/18 18:36 Dose: Not Given Furosemide (Lasix) 20 mg IVPUSH NOW ONE Stop: 02/13/18 17:31 Last Admin: 02/13/18 18:16 Dose: 20 mg Lactated Ringer's (Ringers, Lactated) 1,000 mls @ 250 mls/hr IV ASDIRECTED [facility] Stop: 02/14/18 00:31 Last Admin: 02/13/18 20:05 Dose: 175 mls/hr Lactated Ringer's (Ringers, Lactated) 1,000 mls @ 125 mls/hr IV ASDIRECTED [facility] Last Admin: 02/14/18 08:49 Dose: 125 mls/hr Lactated Ringer's (Ringers, Lactated) 500 mls @ 500 mls/hr IV .BOLUS [facility] Last Admin: 02/14/18 02:45 Dose: 200 mls/hr Potassium Chloride 20 meq/Lidocaine HCl 2 ml/ Sodium Chloride 112 mls @ 50 mls/ hr IV Q2H [facility] Stop: 02/14/18 09:59 Last Admin: 02/14/18 08:47 Dose: 50 mls/hr Potassium Chloride (Kcl 20 Meq In Water 100 Ml) Confirm Administered Dose 100 mls @ as directed .ROUTE .STK-MED ONE Stop: 02/14/18 05:58 Last Admin: 02/14/18 06:04 Dose: Not Given Ceftriaxone Sodium 1 gm/ (Sodium Chloride) 50 mls @ 100 mls/hr IV Q24H [facility] Last Admin: 02/16/18 08:17 Dose: 100 mls/hr Albumin Human (Flexbumin 25%) 50 mls @ 25 mls/hr IV Q6H [facility] Last Admin: 02/15/18 04:46 Dose: 25 mls/hr Albumin Human (Flexbumin 25%) 50 mls @ 25 mls/hr IV Q6H [facility] Stop: 02/18/18 07:00 Last Admin: 02/18/18 08:03 Dose: 25 mls/hr Lactated Ringer's (Ringers, Lactated) 1,000 mls @ 50 mls/hr IV ASDIRECTED [facility] Potassium Chloride 20 meq/Lidocaine HCl 2 ml/ Sodium Chloride 112 mls @ 56 mls/ hr IV ONETIME ONE Stop: 02/15/18 11:59 Last Admin: 02/15/18 11:08 Dose: 56 mls/hr Sodium Chloride (Normal Saline) 1,000 mls @ 50 mls/hr IV ASDIRECTED [facility] Last Admin: 02/15/18 11:13 Dose: 50 mls/hr Doxycycline Hyclate 100 mg/ (Sodium Chloride) 100 mls @ 100 mls/hr IV Q12H [facility] Last Admin: 02/17/18 10:17 Dose: 100 mls/hr Midodrine (Midodrine) 7.5 mg PO Q8H [facility] Last Admin: 02/18/18 08:05 Dose: 7.5 mg Octreotide Acetate (Sandostatin) 100 mcg SUBCUT TID [facility] Last Admin: 02/17/18 09:48 Dose: 100 mcg Oxycodone HCl (Oxycodone) 5 mg PO Q4H PRN PRN Reason: Pain (moderate 4-6) Potassium Chloride (Klor-Con M20) 40 meq PO ONETIME ONE Stop: 02/13/18 17:31 Last Admin: 02/13/18 18:16 Dose: 40 meq Potassium Chloride (Klor-Con M20) 40 meq PO ONETIME ONE Stop: 02/14/18 13:01 Last Admin: 02/14/18 12:32 Dose: 40 meq Potassium Chloride (Klor-Con M20) 40 meq PO ONETIME ONE Stop: 02/14/18 17:01 Last Admin: 02/14/18 16:50 Dose: 40 meq Potassium Chloride (Klor-Con M20) 40 meq PO ONETIME ONE Stop: 02/15/18 09:01 Last Admin: 02/15/18 09:36 Dose: 40 meq Potassium Chloride (Klor-Con M20) 40 meq PO ONETIME ONE Stop: 02/18/18 12:31 Spironolactone (Aldactone) 25 mg PO TID [facility] Last Admin: 02/15/18 09:14 Dose: 25 mg Spironolactone (Aldactone) 25 mg PO TID [facility] Last Admin: 02/18/18 08:05 Dose: 25 mg - Exam Quality Assessment: No: Supplemental Oxygen General: Alert, Oriented, Cooperative, No Acute Distress HEENT: Scleral Icterus Neck: Supple Lungs: Clear to Auscultation, Normal Respiratory Effort Cardiovascular: Regular Rate, Regular Rhythm GI/Abdominal Exam: Normal Bowel Sounds, Soft, Distended Extremities: No Pedal Edema Psy/Mental Status: Alert, Normal Affect - Problem List Review Problem List Initiated/Reviewed/Updated: Yes - My Orders Last 24 Hours: My Active Orders 02/18/18 13:13 Consult to Dietary [Consult to Data Entry Technician] [CONS] Routine 02/18/18 13:14 Lactulose [Chronulac] 10 gm PO DAILY PRN 02/18/18 14:00 Furosemide [Lasix] 40 mg PO BIDDIURETIC Midodrine 7.5 mg PO TID Spironolactone [Aldactone] 25 mg PO BIDDIURETIC 02/19/18 05:00 BASIC METABOLIC PANEL,BMP [CHEM] Timed CBC W/O DIFF,HEMOGRAM [HEME] Timed (1) - Plan Plan:: ASSESSMENT AND PLAN HEPATIC CIRRHOSIS - likely secondary to fatty liver and chronic alcohol use, associated with significant ascites. Complicated by ascites as well as probable hepatorenal syndrome as discussed below. Responding well to paracentesis so far. -Start furosemide twice daily -Change spironolactone to twice daily -antimitochondrial antibodies pending -Surgical follow-up per Dr. Espinoza and Dr. Briggs -Midodrine 7.5 mg 3 times daily -2 g sodium diet -Patient strongly encouraged to avoid further alcohol use ACUTE KIDNEY INJURY - probable component of hepatorenal syndrome, kidney function and urine output slowly improving. -Reassess kidney function in a.m. -Closely monitor urine output -Saline lock IV -Medical therapy as above URINARY TRACT INFECTION - urine culture growing staph epidermidis -Doxycycline 100 mg po every 12 hours (treatment complete 02/19) TYPE 2 DIABETES MELLITUS - sugars mild to moderately elevated at this time. -Continue glipizide -4 times a day glucometers -Low-dose sliding scale NovoLog -Dietary education regarding diabetic diet MAINTENANCE ISSUES -DVT prophylaxis; enoxaparin 40 mg subcutaneous daily -GI prophylaxis; not indicated -Nutrition; 2 g sodium diet, consistent carb diet -Nicotine dependence; 14 mg nicotine patch DISPOSITION - anticipate discharge to home after the hospital stay. Omar Harrell M.D.
[2018-02-18] MEDS: Furosemide 40 MG Tab PO SCH (14:18)
[2018-02-18] MEDS: Melatonin 3 MG Tab PO SCH (21:01)
[2018-02-18] MEDS: diphenhydrAMINE 25 MG Cap PO PRN (21:12)
[2018-02-19] MEDS: Midodrine 5 MG Tab PO SCH (09:18)
[2018-02-19] MEDS: Doxycycline 100 MG Cap PO SCH (09:19)
[2018-02-19] MEDS: Magnesium Oxide 400 MG Tab PO SCH (09:19)
[2018-02-19] MEDS: Furosemide 40 MG Tab PO SCH (09:19)
[2018-02-19] MEDS: Nicotine 14 MG/24 Hr Patch TRDERM SCH (09:20)
[2018-02-19] MEDS: Spironolactone 25 MG Tab PO SCH (09:20)
[2018-02-19] MEDS: Enoxaparin 40 MG/0.4 ML Syringe SUBCUT SCH (09:21)
[2018-02-19] MEDS: glipiZIDE 5 MG Tab PO SCH (09:21)
[2018-02-19] MEDS ORDERED: Potassium Chloride 20 MEQ Tab.ER PO ONE (09:30)
[2018-02-19] MEDS: Insulin Aspart 100 Units/ML 3 ML Pen SUBCUT SCH ×2 (10:45→14:04)
--- NOTE | 2018-02-19 12:25 | PCM.DCSUM1 ---
Discharge Summary - Hospital Course Brief History: 57-year-old female with history of fatty liver, tobacco dependence and alcohol dependence who presented with increasing abdominal distention, weakness and poor urine output. She was directly admitted from the walk-in clinic for management of decompensated cirrhosis and acute kidney injury. - Discharge Data Discharge Date: 02/19/18 Discharge Disposition: Home, Self-Care 01 Condition: Good - Discharge Diagnosis/Problem(s) (1) Cirrhosis of liver with ascites SNOMED Code(s): 09740656 ICD Code: K74.60 - UNSPECIFIED CIRRHOSIS OF LIVER; R18.8 - OTHER ASCITES Status: Acute Qualifiers: Hepatic cirrhosis type: alcoholic cirrhosis Qualified Code(s): K70.31 - Alcoholic cirrhosis of liver with ascites (2) Acute kidney injury SNOMED Code(s): 09261283 ICD Code: N17.9 - ACUTE KIDNEY FAILURE, UNSPECIFIED Status: Acute (3) Hypokalemia SNOMED Code(s): 51578434 ICD Code: E87.6 - HYPOKALEMIA Status: Acute (4) History of alcohol dependence SNOMED Code(s): 972980014 ICD Code: F10.21 - ALCOHOL DEPENDENCE, IN REMISSION Status: Chronic (5) Tobacco dependence SNOMED Code(s): 25300358 ICD Code: F17.200 - NICOTINE DEPENDENCE, UNSPECIFIED, UNCOMPLICATED Status : Chronic (6) Morbid obesity with BMI of 40.0-44.9, adult SNOMED Code(s): 103629418 ICD Code: E66.01 - MORBID (SEVERE) OBESITY DUE TO EXCESS CALORIES; Z68.41 - BODY MASS INDEX (BMI) 40.0-44.9, ADULT Status: Chronic (7) Type 2 diabetes mellitus SNOMED Code(s): 57373464 ICD Code: E11.9 - TYPE 2 DIABETES MELLITUS WITHOUT COMPLICATIONS Status: Chronic Qualifiers: Diabetes mellitus bed bug exterminator insulin use: without group home use Diabetes mellitus complication status: with unspecified complications Qualified Code(s) : E11.8 - Type 2 diabetes mellitus with unspecified complications - Patient Summary/Data Consults: Consultations 02/14/18 11:01 Consult to Physician [CONS] Routine Consulting Provider: Luis Espinoza Call Completed to Consulting Physician: Yes Reason for Consult: paracentesis 02/18/18 13:13 Consult to Dietary [Consult to Passenger Booking Clerk] [CONS] Routine Comment: Physician Instructions: Quantity: Reason for Consult: Diabetes and low sodium diet Special Instructions: needs meter to check sugars Hospital Course: Isabell presented initially to the walk-in clinic with increasing abdominal girth, fatigue. Workup in the walk-in clinic was concerning for urine retention with a bladder scan reading greater than 1000 mL. She also had evidence for elevated bilirubin at greater than 4 and probable acute kidney injury with a creatinine more than 50% greater than baseline. She was directly admitted to the hospital. A Douglas catheter was placed with only minimal urine return. The urine appeared to be very concentrated and urinalysis suggested infection. She was empirically started on antibiotics and a culture was sent. She had significant ascites noted and Dr. Espinoza was consult and for diagnostic paracentesis. The paracentesis fluid suggested transudate and was sent for culture but there were no organisms identified on the Gram stain. Initially diuresis was attempted given her significant ascites that her kidneys did not respond well to the attempts at diuresis. After a couple of days of trying to diuresis using home diuretics alone octreotide and midodrine were added to help improve renal perfusion. This was successful in increasing urine output and improving kidney function. After a couple of days of improved urine output a large volume paracentesis was performed with 6 L of fluid removed. The patient had significant improvement in her abdominal distention and decrease in her weight following this paracentesis. Her urine culture grew out staph epidermidis and antibiotics were transitioned to doxycycline. She has completed adequate therapy for the urinary tract infection during the hospital stay. After the large volume paracentesis the octreotide was discontinued. She did receive albumin throughout much of the hospital stay to help augment her urine output and this was continued for 24 hours after her large volume paracentesis. Following the paracentesis we did transition her to a combination of spironolactone and oral furosemide for ongoing diuresis. She has tolerated these medications well with a stable creatinine which has improved back to her baseline. She does continue to have some ascites though she is much more comfortable. Blood pressure has been stable in the low normal range. We have continued the midodrine which she has tolerated well. She did encounter some hypokalemia after diuresis and this has improved with supplementation. An extensive workup for other causes of cirrhosis including antimitochondrial and anti-smooth muscle antibodies was completed and the studies were negative. The cause for underlying cirrhosis is thought to be a combination of a fatty liver as well as chronic alcohol use. She reports abstinence from alcohol for the past month and did receive extensive counseling about the extreme dangers of any alcohol use in the future. Following diuresis and large volume paracentesis I believe she is safe for outpatient management. Prescriptions will include twice daily furosemide, twice daily spironolactone as well as the midodrine. She does not need further antibiotic coverage. The cultures from her abdominal fluid did not grow any bacteria. She would benefit from early follow-up and will be seeing her primary care physician in one week and has a gastroenterology consult scheduled in a three weeks. - Patient Instructions Diet: Low Sodium Activity: As Tolerated Driving: May Drive Today Showering/Bathing: May Shower Notify Provider of: Fever, Increased Pain, Nausea and/or Vomiting Other/Special Instructions: 1. You were in the hospital for management of decompensated cirrhosis with ascites as well as acute kidney injury. Your condition has been improving with a variety of medications as well as abdominal fluid removal with paracentesis. Your kidney function is now back to normal. We removed approximately 7 L of fluid from your abdomen via the paracentesis procedures. We will continue to utilize medications to help remove additional fluid. I recommend several new prescriptions as listed below: --furosemide Lasix 40 mg tablet, take 1 tablet twice daily at 8 AM and 2 PM. This is a diuretic that will help remove fluid. --Spironolactone 25 mg tablet, take 1 tablet twice daily at 8 AM and 2 PM. This is also a diuretic that will help remove fluid. --Potassium chloride 20 mEq, take 1 tablet once daily in the morning to help supplement her potassium. --Midodrine 5 mg tablet, take 1 tablet 3 times daily. This medication helps to improve your blood pressure and therefore blood flow to the brain, heart and kidneys. --Lactulose 10 mg solution, take 10 mg daily as needed for constipation. 2. Follow-up with Dr. Tenorio in approximately one week and with the deputy prosecuting attorney as scheduled in March. 3. it is extremely important to avoid any alcohol consumption with your current liver disease. Alcohol consumption will accelerate damage to the liver. This damage once present is not reversible. 4. Please seek medical attention if you develop fever greater than 101, have severe abdominal pain or if you develop persistent vomiting or severe diarrhea. - Discharge Plan Prescriptions/Med Rec: Furosemide [Lasix] 40 mg PO BIDDIURETIC #60 tablet Lactulose 10 gm PO DAILY PRN #2 bottle PRN Reason: Constipation Midodrine 5 mg PO TID #90 tablet Potassium Chloride 20 meq PO DAILY #30 tablet.er Spironolactone [Aldactone] 25 mg PO BID #60 tablet Home Medications: Home Meds Melatonin 10 mg PO BEDTIME PRN 02/13/18 [History] glipiZIDE [Glucotrol] 5 mg PO BID 02/13/18 [History] Furosemide [Lasix] 40 mg PO BIDDIURETIC #60 tablet 02/19/18 [Rx] Lactulose 10 gm PO DAILY PRN #2 bottle 02/19/18 [Rx] Midodrine 5 mg PO TID #90 tablet 02/19/18 [Rx] Potassium Chloride 20 meq PO DAILY #30 tablet.er 02/19/18 [Rx] Spironolactone [Aldactone] 25 mg PO BID #60 tablet 02/19/18 [Rx] Patient Handouts: Type 2 Diabetes Mellitus, Diagnosis, Adult, Heart-Healthy Eating Plan, [id number], Constipation, Adult, Low-Sodium Eating Plan Referrals: Neyda Goetz [Registered Dietitian] - 03/28/18 2:00 pm ([facility] in [place]. Bring blood sugar records and meter to appointment. ) Ayan Tenorio MD [Primary Care Provider] - (f/u in 1 week - follow-up hospital stay for decompensated cirrhosis with ascites) - Discharge Summary/Plan Comment DC Time >30 min.: Yes (40 - extensive counseling about liver disease, coordinating diabetes f/u) - Patient Data Vitals - Most Recent: Last Vital Signs Temp 37.1 C 02/19/18 12:06 Pulse 70 02/19/18 12:06 Resp 16 02/19/18 12:06 BP 120/63 02/19/18 12:06 Pulse Ox 95 02/19/18 12:06 Weight - Most Recent: 108.59 kg I&O - Last 24 hours: Intake & Output 02/18/18 02/19/18 02/19/18 22:59 06:59 14:59 Intake Total 800 200 Output Total 600 2100 300 Balance 200 -2100 -100 Lab Results - Last 24 hrs: Laboratory Results - last 24 hr 05/17/18 05/22/18 05/22/18 Range/Units 15:55 05:00 05:00 WBC 9.9 (4.5-11.0) K/uL RBC 3.53 (3.30-5.50) M/uL Hgb 12.2 (12.0-15.0) g/dL Hct 36.5 (36.0-48.0) % MCV 103 H (80-98) fL MCH 35 H (27-31) pg MCHC 33 (32-36) % Plt Count 174 (150-400) K/uL Sodium 140 (140-148) mmol/L Potassium 3.5 L (3.6-5.2) mmol/L Chloride 103 (100-108) mmol/L Carbon Dioxide 30 (21-32) mmol/L Anion Gap 10.5 (5.0-14.0) mmol/L BUN 9 (7-18) mg/dL Creatinine 0.8 (0.6-1.0) mg/dL Est Cr Clr Drug Dosing 66.67 mL/min Estimated GFR (MDRD) > 60 (>60) Glucose 148 H (74-106) mg/dL Calcium 7.7 L (8.5-10.1) mg/dL Anti-Mitochondrial Ab 11.1 (0.0-20.0) Units Med Orders - Current: Current Medications Hydrocodone Bitart/Acetaminophen ([place] 325-5 Mg) 1 - 2 tab PO Q4H PRN PRN Reason: Pain Last Admin: 02/17/18 21:37 Dose: 2 tab Dextrose (Glutose 15) 15 gm PO ONETIME PRN PRN Reason: Hypoglycemia Dextrose/Water (Dextrose 50% In Water) 50 ml IV ONETIME PRN PRN Reason: Hypoglycemia Diphenhydramine HCl (Benadryl) 25 - 50 mg PO Q4H PRN PRN Reason: Itching Last Admin: 02/18/18 21:12 Dose: 50 mg Doxycycline Hyclate (Vibramycin) 100 mg PO BID [facility] Last Admin: 02/19/18 09:19 Dose: 100 mg Enoxaparin Sodium (Lovenox) 40 mg SUBCUT DAILY [facility] Last Admin: 02/19/18 09:21 Dose: 40 mg Furosemide (Lasix) 40 mg PO BIDDIURETIC [facility] Last Admin: 02/19/18 09:19 Dose: 40 mg Glipizide (Glucotrol) 5 mg PO BID [facility] Last Admin: 02/19/18 09:21 Dose: 5 mg Insulin Aspart (Novolog) 0 unit SUBCUT QIDACANDBED [facility]; Protocol Last Admin: 02/19/18 10:45 Dose: Not Given Lactulose (Chronulac) 10 gm PO DAILY PRN PRN Reason: Constipation Magnesium Hydroxide (Milk Of Magnesia) 30 ml PO Q12H PRN PRN Reason: Constipation Last Admin: 02/18/18 11:42 Dose: 30 ml Magnesium Oxide (Magnesium Oxide) 400 mg PO BID [facility] Last Admin: 02/19/18 09:19 Dose: 400 mg Melatonin (Melatonin) 9 mg PO BEDTIME [facility] Last Admin: 02/18/18 21:01 Dose: 9 mg Melatonin (Melatonin) 9 mg PO BEDTIME PRN PRN Reason: SLEEP Midodrine (Midodrine) 7.5 mg PO TID [facility] Last Admin: 02/19/18 09:18 Dose: 7.5 mg Nicotine (Habitrol) 14 mg TRDERM DAILY [facility] Last Admin: 02/19/18 09:20 Dose: 14 mg Nicotine Polacrilex (Nicorelief) 2 mg CHEW Q1H PRN PRN Reason: Other Ondansetron HCl (Zofran) 4 mg IV Q4H PRN PRN Reason: Nausea/Vomiting Last Admin: 02/14/18 09:48 Dose: 4 mg Polyethylene Glycol (Miralax) 17 gm PO DAILY PRN PRN Reason: Constipation Senna/Docusate Sodium (Senna Plus) 1 tab PO BID PRN PRN Reason: Constipation Last Admin: 02/13/18 21:54 Dose: 1 tab Sodium Chloride (Saline Flush) 10 ml FLUSH ASDIRECTED PRN PRN Reason: Keep Vein Open Spironolactone (Aldactone) 25 mg PO BIDDIURETIC [facility] Last Admin: 02/19/18 09:20 Dose: 25 mg Trolamine Salicylate (Aspercreme 10%) 0 gm TOP Q1H PRN PRN Reason: Pain Last Admin: 02/16/18 20:35 Dose: 1 applic Discontinued Medications Bacitracin (Bacitracin Oint 1 Gm) 1 dose TOP ONETIME ONE Stop: 02/14/18 18:29 Last Admin: 02/14/18 21:50 Dose: 1 dose Bacitracin (Bacitracin Oint 1 Gm) Confirm Administered Dose 1 dose .ROUTE .[facility] ONE Stop: 02/14/18 21:49 Last Admin: 02/14/18 21:51 Dose: Not Given Bacitracin (Bacitracin Oint 1 Gm) 2 dose TOP ONETIME ONE Stop: 02/17/18 12:46 Last Admin: 02/17/18 15:20 Dose: 2 dose Bacitracin (Bacitracin Oint 1 Gm) Confirm Administered Dose 2 dose .ROUTE .[facility] ONE Stop: 02/17/18 15:13 Last Admin: 02/17/18 16:19 Dose: Not Given Furosemide (Lasix) 20 mg IVPUSH NOW ONE Stop: 02/13/18 17:31 Last Admin: 02/13/18 18:36 Dose: Not Given Furosemide (Lasix) 20 mg IVPUSH NOW ONE Stop: 02/13/18 17:31 Last Admin: 02/13/18 18:16 Dose: 20 mg Lactated Ringer's (Ringers, Lactated) 1,000 mls @ 250 mls/hr IV ASDIRECTED JOSEPH Stop: 02/14/18 00:31 Last Admin: 02/13/18 20:05 Dose: 175 mls/hr Lactated Ringer's (Ringers, Lactated) 1,000 mls @ 125 mls/hr IV ASDIRECTED [facility] Last Admin: 02/14/18 08:49 Dose: 125 mls/hr Lactated Ringer's (Ringers, Lactated) 500 mls @ 500 mls/hr IV .BOLUS [facility] Last Admin: 02/14/18 02:45 Dose: 200 mls/hr Potassium Chloride 20 meq/Lidocaine HCl 2 ml/ Sodium Chloride 112 mls @ 50 mls/ hr IV Q2H JOSEPH Stop: 02/14/18 09:59 Last Admin: 02/14/18 08:47 Dose: 50 mls/hr Potassium Chloride (Kcl 20 Meq In Water 100 Ml) Confirm Administered Dose 100 mls @ as directed .ROUTE .[facility] ONE Stop: 02/14/18 05:58 Last Admin: 02/14/18 06:04 Dose: Not Given Ceftriaxone Sodium 1 gm/ (Sodium Chloride) 50 mls @ 100 mls/hr IV Q24H [facility] Last Admin: 02/16/18 08:17 Dose: 100 mls/hr Albumin Human (Flexbumin 25%) 50 mls @ 25 mls/hr IV Q6H [facility] Last Admin: 02/15/18 04:46 Dose: 25 mls/hr Albumin Human (Flexbumin 25%) 50 mls @ 25 mls/hr IV Q6H [facility] Stop: 02/18/18 07:00 Last Admin: 02/18/18 08:03 Dose: 25 mls/hr Lactated Ringer's (Ringers, Lactated) 1,000 mls @ 50 mls/hr IV ASDIRECTED [facility] Potassium Chloride 20 meq/Lidocaine HCl 2 ml/ Sodium Chloride 112 mls @ 56 mls/ hr IV ONETIME ONE Stop: 02/15/18 11:59 Last Admin: 02/15/18 11:08 Dose: 56 mls/hr Sodium Chloride (Normal Saline) 1,000 mls @ 50 mls/hr IV ASDIRECTED [facility] Last Admin: 02/15/18 11:13 Dose: 50 mls/hr Doxycycline Hyclate 100 mg/ (Sodium Chloride) 100 mls @ 100 mls/hr IV Q12H [facility] Last Admin: 02/17/18 10:17 Dose: 100 mls/hr Midodrine (Midodrine) 7.5 mg PO Q8H [facility] Last Admin: 02/18/18 08:05 Dose: 7.5 mg Octreotide Acetate (Sandostatin) 100 mcg SUBCUT TID [facility] Last Admin: 02/17/18 09:48 Dose: 100 mcg Oxycodone HCl (Oxycodone) 5 mg PO Q4H PRN PRN Reason: Pain (moderate 4-6) Potassium Chloride (Klor-Con M20) 40 meq PO ONETIME ONE Stop: 02/13/18 17:31 Last Admin: 02/13/18 18:16 Dose: 40 meq Potassium Chloride (Klor-Con M20) 40 meq PO ONETIME ONE Stop: 02/14/18 13:01 Last Admin: 02/14/18 12:32 Dose: 40 meq Potassium Chloride (Klor-Con M20) 40 meq PO ONETIME ONE Stop: 02/14/18 17:01 Last Admin: 02/14/18 16:50 Dose: 40 meq Potassium Chloride (Klor-Con M20) 40 meq PO ONETIME ONE Stop: 02/15/18 09:01 Last Admin: 02/15/18 09:36 Dose: 40 meq Potassium Chloride (Klor-Con M20) 40 meq PO ONETIME ONE Stop: 02/18/18 12:31 Last Admin: 02/18/18 13:18 Dose: 40 meq Potassium Chloride (Klor-Con M20) 40 meq PO ONETIME ONE Stop: 02/19/18 09:31 Last Admin: 02/19/18 09:18 Dose: 40 meq Spironolactone (Aldactone) 25 mg PO TID [facility] Last Admin: 02/15/18 09:14 Dose: 25 mg Spironolactone (Aldactone) 25 mg PO TID [facility] Last Admin: 02/18/18 08:05 Dose: 25 mg - Exam Quality Assessment: Denies: Supplemental Oxygen General: Reports: Alert, Oriented, Cooperative, No Acute Distress Neck: Reports: Supple Lungs: Reports: Normal Respiratory Effort Cardiovascular: Reports: Regular Rate, Regular Rhythm GI/Abdominal Exam: Distended Extremities: Pedal Edema Skin: Reports: Warm, Dry Psy/Mental Status: Reports: Alert, Normal Affect
== END 2018-02-19 13:55 | disposition home or self-care (01) | DRG 433 ==
LOC: JP.MS 11:01 → OBSVTOIN 02-14 11:01
PROVIDERS: ADMIT Hospitalist; ATTEND Internal Medicine
PROC: 0W9G3ZX Drainage of Peritoneal Cavity, Percutaneous Approach, Diagnostic (ICD-10-PCS; principal; 2018-02-14)
DX: K70.31 Alcoholic cirrhosis of liver with ascites (principal); N17.9 Acute kidney failure, unspecified; N39.0 Urinary tract infection, site not specified; Z68.41 Body mass index [BMI] 40.0-44.9, adult; K76.0 Fatty (change of) liver, not elsewhere classified; F10.21 Alcohol dependence, in remission; F17.210 Nicotine dependence, cigarettes, uncomplicated; E87.6 Hypokalemia; E11.9 Type 2 diabetes mellitus without complications; Z79.84 Long term (current) use of oral hypoglycemic drugs; I10 Essential (primary) hypertension; B95.7 Other staphylococcus as the cause of diseases classified elsewhere; K59.09 Other constipation; I95.9 Hypotension, unspecified; L29.9 Pruritus, unspecified; E66.01 Morbid (severe) obesity due to excess calories
CPT/HCPCS: 36415; 51702; 80048; 80053; 81001; 82150; 82962; 83516; 83735; 83986; 84132; 84157; 85025; 85027; 85610; 86255; 87070; 87086; 87088; 87186; 87205; 89050; A9270-GY; J0696; J1650; J1940; J2354; J2405; J3480; J7030; J7040; J7050; J7120; P9047

== ENCOUNTER 2018-11-30 14:19 | Emergency (ER) | payer MEDICAID ==
[2018-11-30] MEDS ORDERED: Sodium Chloride 0.9% 10 ML Syringe FLUSH PRN (14:51)
--- NOTE | 2018-11-30 14:57 | EDM.PDOC ---
ED HPI GENERAL MEDICAL PROBLEM - General Chief Complaint: General Stated Complaint: FEELING LIKE PASSING OUT OFTEN Time Seen by Provider: 11/30/18 14:40 Source of Information: Reports: Patient, Old Records, RN History Limitations: Reports: No Limitations - History of Present Illness INITIAL COMMENTS - FREE TEXT/NARRATIVE: 58 yo female with a hx of ascites and who is on both furosemide and spironolactone for control of this problem presents complaining of recent onset of light-headedness when she stands. Her ascites has been under control recently. She denies vomiting, diarrhea, melena or hematochezia. Feels well if she is not standing. No fever or chills. Onset: Gradual Onset Date: 11/28/18 Duration: Day(s):, Getting Worse Location: Reports: Generalized Quality: Reports: Other (no pain) Severity: Moderate Improves with: Reports: Other (lying) Worsens with: Reports: Other (standing) Context: Reports: Other (see HPI) Associated Symptoms: Reports: No Other Symptoms Treatments HEALTH ACTUARY: Reports: Other (see below) (usual meds. ) - Related Data Allergies Allergy/AdvReac Type Severity Reaction Status Date / Time No Known Allergies Allergy Verified 11/30/18 14:47 Home Meds: Home Meds Lactulose 10 gm PO DAILY PRN #2 bottle 02/19/18 [Rx] Potassium Chloride 20 meq PO DAILY #30 tablet.er 02/19/18 [Rx] Dulaglutide [Trulicity] 1.5 mg SQ ASDIRECTED 11/30/18 [History] Estrogens, Conjugated [Premarin Vaginal Crm] 1 applic VAG DAILY 11/30/18 [ History] Furosemide [Lasix] 40 mg PO DAILY 11/30/18 [History] Hypromellose [Genteal Mild] 15 ml OP DAILY 11/30/18 [History] Insulin Glargine,Hum.Rec.Anlog [Basaglar Kwikpen U-100] 24 unit SQ BEDTIME 11/30 [History] Multivitamins [Tab-A-Justine] 1 each PO DAILY 11/30/18 [History] Nadolol [Naldol] 10 mg PO DAILY 11/30/18 [History] Omeprazole 20 mg PO BIDAC 11/30/18 [History] SitaGLIPtin [Januvia] 100 mg PO DAILY 11/30/18 [History] Spironolactone [Aldactone] 100 mg PO DAILY 11/30/18 [History] Vitamin A 10,000 unit PO DAILY 11/30/18 [History] Zinc Gluconate [Zinc] 50 mg PO DAILY 11/30/18 [History] glipiZIDE [Glucotrol] 10 mg PO DAILY 11/30/18 [History] hydrOXYzine HCl [Atarax] 25 mg PO QID 11/30/18 [History] traZODone 50 mg PO DAILY 11/30/18 [History] Past Medical History - Past Health History Medical/Surgical History: Denies Medical/Surgical History HEENT History: Reports: None Cardiovascular History: Reports: High Cholesterol, Hypertension Respiratory History: Reports: COPD, Sleep Apnea, SOB Gastrointestinal History: Reports: Chronic Constipation, Chronic Diarrhea Genitourinary History: Reports: Retention, Urinary, Urinary Incontinence Psychiatric History: Reports: Addiction, Anxiety, Depression, Panic Attack Endocrine/Metabolic History: Reports: Diabetes, Type II - Infectious Disease History Infectious Disease History: Reports: Chicken Pox, Mumps - Past Surgical History Head Surgeries/Procedures: Reports: None HEENT Surgical History: Reports: None Cardiovascular Surgical History: Reports: None GI Surgical History: Reports: None Female Surgical History: Reports: Section Endocrine Surgical History: Reports: None Oncologic Surgical History: Reports: None Social & Family History - Family History Family Medical History: Unobtainable - Caffeine Use Caffeine Use: Reports: None ED ROS GENERAL - Review of Systems Review Of Systems: See Below Constitutional: Reports: Malaise HEENT: Reports: No Symptoms Respiratory: Reports: No Symptoms Cardiovascular: Reports: Lightheadedness (with standing) Endocrine: Reports: No Symptoms GI/Abdominal: Reports: Other (ascites, stable) : Reports: No Symptoms Musculoskeletal: Reports: No Symptoms Skin: Reports: No Symptoms Neurological: Reports: No Symptoms Psychiatric: Reports: No Symptoms ED EXAM, GENERAL - Physical Exam Exam: See Below Exam Limited By: No Limitations General Appearance: Alert, WD/WN, No Apparent Distress Eye Exam: Bilateral Eye: Normal Inspection Ears: Normal External Exam, Normal Canal, Hearing Grossly Normal Ear Exam: Bilateral Ear: Auricle Normal, Canal Normal Nose: Normal Inspection, No Blood Throat/Mouth: Normal Inspection, Normal Lips, Normal Oropharynx, Normal Voice, No Airway Compromise Head: Atraumatic, Normocephalic Neck: Normal Inspection Respiratory/Chest: No Respiratory Distress, Lungs Clear, Normal Breath Sounds, No Accessory Muscle Use Cardiovascular: Regular Rate, Rhythm GI/Abdominal: Normal Bowel Sounds, Soft, Non-Tender, No Distention. No: Distended Back Exam: Normal Inspection. No: CVA Tenderness (R), CVA Tenderness (L) Extremities: Normal Inspection, Normal Range of Motion, Non-Tender, Pedal Edema (trace) Neurological: Alert, Oriented, CN II-XII Intact, Normal Cognition, No Motor/ Sensory Deficits Psychiatric: Normal Affect, Normal Mood Skin Exam: Warm, Dry, Intact, Normal Color, No Rash Course - Vital Signs Text/Narrative:: BP much better after 2nd liter of NS, still mildly light-headed. Fingerstick glucose before discharge was 68 so she was fed before discharge. Last Recorded V/S: Last Vital Signs Temp 36.3 C 11/30/18 14:39 Pulse 78 11/30/18 18:07 Resp 16 11/30/18 16:17 BP 108/56 L 11/30/18 18:07 Pulse Ox 98 11/30/18 16:17 Orthostatic Blood Pressure [ 86/57 Standing] Orthostatic Blood Pressure [ 88/56 Sitting] Orthostatic Blood Pressure [ 110/63 Supine] - Orders/Labs/Meds Orders: Active Orders 24 hr Category Date Time Status Orthostatic Vital Signs [RC] ASDIRECTED Care 11/30/18 14:26 Active GLUCOSE POC LAB TO COLLECT [POC] Stat Lab 11/30/18 18:05 Ordered Sodium Chloride 0.9% [Saline Flush] Med 11/30/18 14:51 Active 10 ml FLUSH ASDIRECTED PRN Saline Lock Insert [OM.PC] Routine Oth 11/30/18 14:51 Ordered Medication Orders Sodium Chloride (Saline Flush) 10 ml FLUSH ASDIRECTED PRN PRN Reason: Keep Vein Open Last Admin: 11/30/18 16:18 Dose: 10 ml Labs: Laboratory Tests 11/30/18 11/30/18 Range/Units 14:59 14:59 WBC 10.3 (4.5-11.0) K/uL RBC 4.79 (3.30-5.50) M/uL Hgb 14.7 D (12.0-15.0) g/dL Hct 43.3 (36.0-48.0) % MCV 90 (80-98) fL MCH 31 (27-31) pg MCHC 34 (32-36) % Plt Count 180 (150-400) K/uL Sodium 137 L (140-148) mmol/L Potassium 4.5 (3.6-5.2) mmol/L Chloride 99 L (100-108) mmol/L Carbon Dioxide 28 (21-32) mmol/L Anion Gap 14.5 H (5.0-14.0) mmol/L BUN 32 H D (7-18) mg/dL Creatinine 1.7 H D (0.6-1.0) mg/dL Est Cr Clr Drug Dosing 30.77 mL/min Estimated GFR (MDRD) 31 L (>60) Glucose 103 (74-106) mg/dL Calcium 10.0 D (8.5-10.1) mg/dL Total Bilirubin 1.2 H (0.2-1.0) mg/dL AST 22 (15-37) U/L ALT 20 (12-78) U/L Alkaline Phosphatase 109 (46-116) U/L Total Protein 7.9 (6.4-8.2) g/dL Albumin 3.5 (3.4-5.0) g/dL Globulin 4.4 H (2.3-3.5) g/dL Albumin/Globulin Ratio 0.8 L (1.2-2.2) Meds: Medications Generic Name Dose Route Start Last Admin Trade Name Freq PRN Reason Stop Dose Admin Sodium Chloride 10 ml 11/30/18 14:51 11/30/18 16:18 Saline Flush FLUSH 10 ml ASDIRECTED PRN Administration Keep Vein Open Discontinued Medications Generic Name Dose Route Start Last Admin Trade Name Freq PRN Reason Stop Dose Admin Sodium Chloride 1,000 mls @ 1,000 mls/hr 11/30/18 15:32 11/30/18 15:39 Normal Saline IV 11/30/18 16:31 1,000 mls/hr .BOLUS ONE Administration Sodium Chloride 1,000 mls @ 1,000 mls/hr 11/30/18 16:52 11/30/18 17:40 Normal Saline IV 11/30/18 17:51 1,000 mls/hr .BOLUS ONE Infusion Departure - Departure Time of Disposition: 18:30 Disposition: Home, Self-Care 01 Condition: Fair Clinical Impression: Orthostatic hypotension, Hypoglycemia - Discharge Information *PRESCRIPTION DRUG MONITORING PROGRAM REVIEWED*: No *COPY OF PRESCRIPTION DRUG MONITORING REPORT IN PATIENT NEELAM: No Instructions: Orthostatic Hypotension Referrals: Ayan Tenorio MD [Primary Care Provider] - Forms: ED Department Discharge Additional Instructions: Decrease your furosemide to 40 mg every other day, skipping tomorrow and then resuming every other day on Sunday. Keep taking all your other medicine as currently. See your doctor for recheck preferrably on Sunday. Return here as needed in the interim. - My Orders Last 24 Hours: My Active Orders 11/30/18 14:26 Orthostatic Vital Signs [RC] ASDIRECTED 11/30/18 14:51 Sodium Chloride 0.9% [Saline Flush] 10 ml FLUSH ASDIRECTED PRN Saline Lock Insert [OM.PC] Routine 11/30/18 18:05 GLUCOSE POC LAB TO COLLECT [POC] Stat - Assessment/Plan Last 24 Hours: My Active Orders 11/30/18 14:26 Orthostatic Vital Signs [RC] ASDIRECTED 11/30/18 14:51 Sodium Chloride 0.9% [Saline Flush] 10 ml FLUSH ASDIRECTED PRN Saline Lock Insert [OM.PC] Routine 11/30/18 18:05 GLUCOSE POC LAB TO COLLECT [POC] Stat
[2018-11-30] MEDS ORDERED: Sodium Chloride 0.9% 1,000 ML IV ONE ×2 (15:32→16:52)
== END 2018-11-30 19:07 | disposition home or self-care (01) ==
LOC: JP.ED 14:19
DX: I95.1 Orthostatic hypotension (principal); E16.2 Hypoglycemia, unspecified; I10 Essential (primary) hypertension; E11.9 Type 2 diabetes mellitus without complications; E78.00 Pure hypercholesterolemia, unspecified; F41.9 Anxiety disorder, unspecified; F32.9 Major depressive disorder, single episode, unspecified; Z79.899 Other long term (current) drug therapy; Z79.4 Long term (current) use of insulin
CPT/HCPCS: 36415; 80053; 82962; 85027; 96360; 99283; J7030

== ENCOUNTER 2018-12-18 17:14 | Emergency (ER) | payer MEDICAID ==
--- NOTE | 2018-12-18 18:23 | EDM.PDOC ---
ED HPI GENERAL MEDICAL PROBLEM - General Chief Complaint: General Stated Complaint: dizziness LOW BLOOD PRESSURE Time Seen by Provider: 12/18/18 18:19 Source of Information: Reports: Patient History Limitations: Reports: No Limitations - History of Present Illness INITIAL COMMENTS - FREE TEXT/NARRATIVE: pt has been sob and dizziy. When she stands up she feels like her bp drops marked.y . She does have a history of etoh liver disease. She has recently been taken off of her lasix and her spirolactone has been decreased. S he does feel tight in her abdoman. She has had sig acities in the past. Onset: Gradual Duration: Hour(s): Location: Reports: Head, Abdomen, Other ( she states her abdomN FEELS VERY TIGHT. ) Associated Symptoms: Reports: Shortness of Breath, Other ( DIZZINESS, ) - Related Data Allergies Allergy/AdvReac Type Severity Reaction Status Date / Time No Known Allergies Allergy Verified 12/18/18 17:37 Home Meds: Home Meds Lactulose 10 gm PO DAILY PRN #2 bottle 02/19/18 [Rx] Potassium Chloride 20 meq PO DAILY #30 tablet.er 02/19/18 [Rx] Dulaglutide [Trulicity] 1.5 mg SQ ASDIRECTED 11/30/18 [History] Estrogens, Conjugated [Premarin Vaginal Crm] 1 applic VAG DAILY 11/30/18 [ History] Hypromellose [Genteal Mild] 15 ml OP DAILY 11/30/18 [History] Insulin Glargine,Hum.Rec.Anlog [Basaglar Kwikpen U-100] 24 unit SQ BEDTIME 11/30 [History] Multivitamins [Tab-A-Justine] 1 each PO DAILY 11/30/18 [History] Omeprazole 20 mg PO BIDAC 11/30/18 [History] SitaGLIPtin [Januvia] 100 mg PO DAILY 11/30/18 [History] Spironolactone [Aldactone] 25 mg PO DAILY 11/30/18 [History] Vitamin A 10,000 unit PO DAILY 11/30/18 [History] Zinc Gluconate [Zinc] 50 mg PO DAILY 11/30/18 [History] glipiZIDE [Glucotrol] 10 mg PO DAILY 11/30/18 [History] hydrOXYzine HCl [Atarax] 25 mg PO QID 11/30/18 [History] traZODone 50 mg PO DAILY 11/30/18 [History] Past Medical History - Past Health History Medical/Surgical History: Denies Medical/Surgical History HEENT History: Reports: Impaired Vision Cardiovascular History: Reports: High Cholesterol, Hypertension Other Cardiovascular History: hypotension Respiratory History: Reports: SOB Other Respiratory History: c-pap Gastrointestinal History: Reports: Other (See Below) Other Gastrointestinal History: acities Genitourinary History: Reports: Retention, Urinary, Urinary Incontinence [employer] History: Reports: Musculoskeletal History: Reports: Arthritis, Back Pain, Chronic Other Musculoskeletal History: shoulder pain. chronic pain Psychiatric History: Reports: Addiction, Anxiety, Depression, Panic Attack Endocrine/Metabolic History: Reports: Diabetes, Type II - Infectious Disease History Infectious Disease History: Reports: Chicken Pox, Mumps - Past Surgical History Head Surgeries/Procedures: Reports: None HEENT Surgical History: Reports: None Cardiovascular Surgical History: Reports: None Respiratory Surgical History: Reports: None Female Surgical History: Reports: Section Endocrine Surgical History: Reports: None Musculoskeletal Surgical History: Reports: None Oncologic Surgical History: Reports: None Dermatological Surgical History: Reports: None Social & Family History - Family History Family Medical History: Unobtainable - Tobacco Use Smoking Status *Q: Current Every Day Smoker Years of Tobacco use: 39 Packs/Tins Daily: 0.5 Second Hand Smoke Exposure: No - Caffeine Use Caffeine Use: Reports: Coffee - Recreational Drug Use Recreational Drug Use: No ED ROS GENERAL - Review of Systems Review Of Systems: See Below Constitutional: Reports: No Symptoms HEENT: Reports: Other ( DIZZINESS) Respiratory: Reports: Shortness of Breath Cardiovascular: Reports: Lightheadedness Endocrine: Reports: No Symptoms GI/Abdominal: Reports: Other (PT FEELS LIKE HER ABDOMAN IS TIGHT. ) : Reports: No Symptoms Musculoskeletal: Reports: No Symptoms Skin: Reports: No Symptoms Neurological: Reports: Dizziness ED EXAM, GENERAL - Physical Exam Exam: See Below Free Text/Narrative:: pt arrived having dizziness. She does have some drop in her bp when she moves quickly. Exam Limited By: No Limitations General Appearance: Alert, Anxious, Mild Distress, Other (pupils are equal and reactive. ) Ears: Normal TMs Nose: Normal Inspection Throat/Mouth: Normal Inspection Head: Atraumatic Neck: Normal Inspection Respiratory/Chest: No Respiratory Distress Cardiovascular: Regular Rate, Rhythm GI/Abdominal: Soft, Other (not distended appearing. ) (Female) Exam: Deferred Rectal (Female) Exam: Deferred Back Exam: Normal Inspection Extremities: Normal Inspection Neurological: Alert, Oriented, Normal Cognition Course - Vital Signs Last Recorded V/S: Last Vital Signs Temp 36.6 C 12/18/18 17:32 Pulse 99 12/18/18 19:42 Resp 18 12/18/18 19:42 BP 150/87 H 12/18/18 19:42 Pulse Ox 96 12/18/18 19:42 Orthostatic Blood Pressure [ 118/74 Standing] Orthostatic Blood Pressure [ 129/76 Sitting] Orthostatic Blood Pressure [ 129/73 Supine] - Orders/Labs/Meds Labs: Laboratory Tests 12/18/18 12/18/18 12/18/18 Range/Units 18:17 18:17 18:43 WBC 12.2 H (4.5-11.0) K/uL RBC 4.88 (3.30-5.50) M/uL Hgb 15.0 (12.0-15.0) g/dL Hct 44.4 (36.0-48.0) % MCV 91 (80-98) fL MCH 31 (27-31) pg MCHC 34 (32-36) % Plt Count 122 L (150-400) K/uL Neut % (Auto) 69 H (36-66) % Lymph % (Auto) 24 (24-44) % Lane % (Auto) 6 (2-6) % Eos % (Auto) 2 (2-4) % Baso % (Auto) 0 (0-1) % Sodium 134 L (140-148) mmol/L Potassium 4.3 (3.6-5.2) mmol/L Chloride 101 (100-108) mmol/L Carbon Dioxide 22 (21-32) mmol/L Anion Gap 15.3 H (5.0-14.0) mmol/L BUN 17 (7-18) mg/dL Creatinine 0.9 (0.6-1.0) mg/dL Est Cr Clr Drug Dosing 58.12 mL/min Estimated GFR (MDRD) > 60 (>60) Glucose 209 H (74-106) mg/dL Calcium 9.5 (8.5-10.1) mg/dL Total Bilirubin 0.7 (0.2-1.0) mg/dL AST 22 (15-37) U/L ALT 34 (12-78) U/L Alkaline Phosphatase 127 H (46-116) U/L Troponin I (0.000-0.056) ng/mL NT-Pro-B Natriuret Pep 257 H (5-125) pg/mL Total Protein 7.5 (6.4-8.2) g/dL Albumin 3.5 (3.4-5.0) g/dL Globulin 4.0 H (2.3-3.5) g/dL Albumin/Globulin Ratio 0.9 L (1.2-2.2) Urine Color Yellow Urine Appearance Clear Urine pH 5.0 (4.5-8.0) Ur Specific [place] 1.015 (1.008-1.030) Urine Protein Negative (NEGATIVE) mg/dL Urine Glucose (UA) 1000 H (NEGATIVE) mg/dL Urine Ketones Negative (NEGATIVE) mg/dL Urine Occult Blood Negative (NEGATIVE) Urine Nitrite Negative (NEGATIVE) Urine Bilirubin Negative (NEGATIVE) Urine Urobilinogen Normal (NORMAL) mg/dL Ur Leukocyte Esterase Negative (NEGATIVE) Urine RBC Not seen (0-5) Urine WBC 0-5 (0-5) Ur Epithelial Cells Few Amorphous Sediment Not seen Urine Bacteria Few Urine Mucus Not seen Urine Other 12/18/18 Range/Units 21:12 WBC (4.5-11.0) K/uL RBC (3.30-5.50) M/uL Hgb (12.0-15.0) g/dL Hct (36.0-48.0) % MCV (80-98) fL MCH (27-31) pg MCHC (32-36) % Plt Count (150-400) K/uL Neut % (Auto) (36-66) % Lymph % (Auto) (24-44) % Lane % (Auto) (2-6) % Eos % (Auto) (2-4) % Baso % (Auto) (0-1) % Sodium (140-148) mmol/L Potassium (3.6-5.2) mmol/L Chloride (100-108) mmol/L Carbon Dioxide (21-32) mmol/L Anion Gap (5.0-14.0) mmol/L BUN (7-18) mg/dL Creatinine (0.6-1.0) mg/dL Est Cr Clr Drug Dosing mL/min Estimated GFR (MDRD) (>60) Glucose (74-106) mg/dL Calcium (8.5-10.1) mg/dL Total Bilirubin (0.2-1.0) mg/dL AST (15-37) U/L ALT (12-78) U/L Alkaline Phosphatase (46-116) U/L Troponin I < 0.017 (0.000-0.056) ng/mL NT-Pro-B Natriuret Pep (5-125) pg/mL Total Protein (6.4-8.2) g/dL Albumin (3.4-5.0) g/dL Globulin (2.3-3.5) g/dL Albumin/Globulin Ratio (1.2-2.2) Urine Color Urine Appearance Urine pH (4.5-8.0) Ur Specific [place] (1.008-1.030) Urine Protein (NEGATIVE) mg/dL Urine Glucose (UA) (NEGATIVE) mg/dL Urine Ketones (NEGATIVE) mg/dL Urine Occult Blood (NEGATIVE) Urine Nitrite (NEGATIVE) Urine Bilirubin (NEGATIVE) Urine Urobilinogen (NORMAL) mg/dL Ur Leukocyte Esterase (NEGATIVE) Urine RBC (0-5) Urine WBC (0-5) Ur Epithelial Cells Amorphous Sediment Urine Bacteria Urine Mucus Urine Other Meds: Medications Discontinued Medications Generic Name Dose Route Start Last Admin Trade Name Freq PRN Reason Stop Dose Admin Sodium Chloride 80 mls @ 3 mls/sec 12/18/18 19:45 12/18/18 20:09 Normal Saline IV 3 mls/sec ASDIRECTED JOSEPH Administration Iopamidol 100 ml 12/18/18 19:45 12/18/18 20:09 Isovue-300 (61%) IV 100 ml . DIRECTED JOSEPH Administration Sodium Chloride 10 ml 12/18/18 19:42 12/18/18 20:09 Saline Flush FLUSH 10 ml ASDIRECTED PRN Administration Keep Vein Open - Re-Assessments/Exams Free Text/Narrative Re-Assessment/Exam: 12/18/18 21:30 cat scan of the abdoman did not reveal alot of acites, There was slight thickening over the stomach and the cirrohiosis of the liver. Her labs otherwise were not real remarkable. Departure - Departure Time of Disposition: 21:28 Disposition: Home, Self-Care 01 Condition: Fair Clinical Impression: Dizziness - Discharge Information Instructions: Dizziness, [id number] Referrals: Ayan Tenorio MD [Primary Care Provider] - Forms: ED Department Discharge Care Plan Goals: continue to encourage fluids, leave meds the same, appt with Dr Tenorio sunday instead of .
--- NOTE | 2018-12-18 19:16 | CRLCR ---
Shortness of breath Two-view chest x-ray. Findings: Normal cardiac mediastinal silhouette appears lungs are clear of an acute airspace or interstitial process. No effusion or pneumothorax. IMPRESSION: 1. No acute pulmonary process. Dictated by Sarah Mckinley MD @ Dec 18 2018 7:13PM Signed by Dr. Sarah Mckinley @ Dec 18 2018 7:14PM
[2018-12-18] MEDS ORDERED: Sodium Chloride 0.9% 10 ML Syringe FLUSH PRN (19:42)
[2018-12-18] MEDS ORDERED: Iopamidol 612 MG/ML 100 ML Bottle IV SCH (19:45)
[2018-12-18] MEDS ORDERED: Sodium Chloride 0.9% 80 ML IV SCH (19:45)
--- NOTE | 2018-12-18 20:56 | CRLCT ---
INDICATION: Abdominal pressure TECHNIQUE: CT abdomen and pelvis acquired with IV contrast. 100 mL of Isovue 300 administered. COMPARISON: 02/04/2018 FINDINGS: Lower chest: Unremarkable. Liver: A mildly abnormal hepatic morphology and hepatic surface nodularity consistent with cirrhosis. Spleen: Unremarkable. Pancreas: Unremarkable. Gallbladder and bile ducts: Apparent small pericholecystic fluid, nonspecific, without significant gallbladder distention. Adrenal glands: A mildly thickened left adrenal. Kidneys: Unremarkable. GI tract: Thickening of the distal gastric antral wall despite distension. No high-grade mechanical bowel obstruction. Few fluid-filled small bowel segments are nonspecific. A normal appendix. No significant pericolonic changes. Stool throughout the majority of the colon. Vascular structures: Atherosclerotic changes. Small caliber perisplenic and gastrohepatic ligament collaterals as well as few small paraesophageal varices. Lymph nodes: Mildly prominent periportal and portacaval lymph nodes, nonspecific. Miscellaneous: Small fluid in the hepatic intersegmental fissure. No free air. Pelvic Organs: Slight bladder wall prominence versus underdistention. No gross uterine abnormality seen. Bones: No significant change. IMPRESSION: Cirrhosis with portal hypertension, evidenced by collateral vessels. Thickening of the gastric antral wall despite distention. Correlate for PUD or regional gastritis and consider endoscopic evaluation. No evidence of appendicitis, diverticulitis or high-grade mechanical bowel obstruction. Small pericholecystic fluid is nonspecific and could be related to cirrhosis. Correlate clinically and if indicated, with sonography. Dictated by Octavio Langley MD @ 12/18/2018 8:54:18 PM Please note that all CT scans at this facility use dose modulation, iterative reconstruction, and/or weight-based dosing when appropriate to reduce radiation dose to as low as reasonably achievable. Dictated by: Octavio Langely MD @ 12/18/2018 20:54:27 (Electronically Signed)
== END 2018-12-18 21:47 | disposition home or self-care (01) ==
LOC: JP.ED 17:14
DX: R42 Dizziness and giddiness (principal); F17.210 Nicotine dependence, cigarettes, uncomplicated; I10 Essential (primary) hypertension; E78.00 Pure hypercholesterolemia, unspecified; F41.9 Anxiety disorder, unspecified; F32.9 Major depressive disorder, single episode, unspecified; E11.9 Type 2 diabetes mellitus without complications; Z79.4 Long term (current) use of insulin; Z79.899 Other long term (current) drug therapy
CPT/HCPCS: 36415; 71046; 74177; 80053; 81001; 83880; 84484; 85025; 93005; 99284; J7030; Q9967

== ENCOUNTER 2022-06-01 07:44 | Day surgery (SDC) | payer MEDICARE, MEDICAID ==
[2022-06-01] MEDS ORDERED: Sodium Chloride 0.9% 1,000 ML IV SCH (08:30)
[2022-06-01] MEDS ORDERED: Propofol 200 MG/20 ML SDV ONE (08:51)
[2022-06-01] MEDS ORDERED: fentaNYL 100 MCG/2 ML SDV ONE (08:51)
[2022-06-01] MEDS ORDERED: Midazolam 1 MG/ML 2 ML SDV ONE (08:51)
== END 2022-06-01 10:45 | disposition home or self-care (01) ==
LOC: JP.SDS 07:44
PROVIDERS: ATTEND Surgery
DX: Z12.11 Encounter for screening for malignant neoplasm of colon (principal); D12.0 Benign neoplasm of cecum; F17.200 Nicotine dependence, unspecified, uncomplicated; G47.33 Obstructive sleep apnea (adult) (pediatric); E66.9 Obesity, unspecified; Z68.41 Body mass index [BMI] 40.0-44.9, adult; Z80.0 Family history of malignant neoplasm of digestive organs; Z79.83 Long term (current) use of bisphosphonates; Z79.810 Long term (current) use of selective estrogen receptor modulators (SERMs); Z79.899 Other long term (current) drug therapy
CPT/HCPCS: 45380; 45385; 88305; J2250; J2704; J3010; J7030

== ENCOUNTER 2023-01-30 06:24 | Day surgery (SDC) | payer MEDICARE, MEDICAID ==
[~2023-01-30 06:24] MED LIST: Dextrose 5%-Lactated Ringers 1,000 ML IV SCH
[2023-01-30] MEDS ORDERED: Dextrose 5%-Lactated Ringers 1,000 ML IV SCH (07:00)
[2023-01-30] MEDS ORDERED: Midazolam 1 MG/ML 2 ML SDV ONE (07:12)
[2023-01-30] MEDS ORDERED: Propofol 200 MG/20 ML SDV ONE ×2 (07:12→07:51)
[2023-01-30] MEDS ORDERED: fentaNYL 50 MCG/ML SDV ONE (07:13)
== END 2023-01-30 09:50 | disposition home or self-care (01) ==
LOC: JP.SDS 06:24
PROVIDERS: ATTEND Family Medicine
DX: Z12.11 Encounter for screening for malignant neoplasm of colon (principal); G47.33 Obstructive sleep apnea (adult) (pediatric); E11.9 Type 2 diabetes mellitus without complications; Z86.010 Personal history of colon polyps; Z80.0 Family history of malignant neoplasm of digestive organs; Z98.890 Other specified postprocedural states
CPT/HCPCS: G0105; J2250; J2704; J3010; J7121